=== PATIENT | male | born 2000 | race Caucasian/White ===

== ENCOUNTER 2020-07-21 13:11 | Outpatient (REF) | payer MEDICAID, SELFPAY ==
[2020-07-21 14:11] LABS: MANUAL DIFF FLAG NO
[2020-07-21 14:20] LABS: Basophils Absolute Auto 0.1 X10*3/uL (0.0-0.2); Basophils Percent Auto 0.9 % (0-2); Eosinophils Absolute Auto 0.1 X10*3/uL (0.0-0.4); Imm Gran Abs Auto 0.02 X10*3/uL (0.00-0.03); Imm Gran Pct Auto 0.3 % (0.0-0.4); Lymphocytes Absolute Auto 1.7 X10*3/uL (1.2-4.9); Lymphocytes Percent Auto 24.7 % (20-40); Mean Corpuscular HGB Conc 33.3 g/dl (31.0-36.0); Mean Corpuscular Hemoglobin 29.2 pg (27.0-33.0); Mean Corpuscular Volume 87.5 fL (80-98); Mean Platelet Volume 10.9 fL (9.4-12.4); Monocytes Absolute Auto 0.5 X10*3/uL (0.1-1.2); Neutrophils Absolute Auto 4.4 X10*3/uL (2.0-8.3); Neutrophils Percent Auto 65.1 % (45-73); Platelet Count 261 X10*3/uL (160-400); Red Blood Count 5.14 X10*6/uL (4.60-5.80); White Blood Count 6.7 X10*3/uL (4.8-10.8)
[2020-07-21 14:41] LABS: Alanine Aminotransferase 21 U/L (0-40); Albumin Level 4.7 g/dL (3.5-5.0); Alkaline Phosphatase 61 U/L (39-117); Anion Gap 10 (12-20); Aspartate Amino Transferase 17 U/L (5-37); Bilirubin Total 0.5 mg/dL (0.0-1.0); Blood Urea Nitrogen 13 mg/dL (9-16); Calcium 9.8 mg/dL (8.4-10.2); Carbon Dioxide 28 mmol/L (22-29); Chloride 104 mmol/L (96-108); Cholesterol 170 mg/dL; Estimated Glomerular Filt Rate > 60; Glucose Random 107 mg/dL (60-115); HDL Cholesterol 46 mg/dL; LDL Cholesterol Calculated 96 mg/dl; Potassium 4.1 mmol/l (3.3-5.1); Sodium 138 mmol/L (135-145); Total Protein 7.2 g/dL (6.5-8.0); Triglycerides 141 mg/dL
== END 2020-07-21 13:12 | disposition home or self-care (01) ==
LOC: HO.HMGCLDS 13:11
PROVIDERS: PCP Internal Medicine; Visit Provider Internal Medicine
DX: R53.83 Other fatigue (principal)
CPT/HCPCS: 36415; 80053; 80061; 85025

== ENCOUNTER 2020-08-08 11:33 | Emergency (ER) | payer MEDICAID, SELFPAY ==
[2020-08-08 11:45] VITALS: BP 124/64; PULSE 70; RESP 16; TEMP 36.8; O2SAT 100; BMI 30.5
--- NOTE | 2020-08-08 11:54 | XR_ITS ---
EXAMINATION: XR WRIST, LEFT CLINICAL INFORMATION: Left wrist pain status post football injury. COMPARISON: None TECHNIQUE: PA, lateral, and oblique views of the left wrist. FINDINGS: The bones and soft tissues are normal. No fracture. Alignment is anatomic with normal joint spaces. No erosions or abnormal soft tissue calcifications. XR/XR wrist LT min 3V IMPRESSION: Unremarkable left wrist.
--- NOTE | 2020-08-08 12:09 | ED.EXTPRO ---
HPI - Extremity Problem General Chief complaint: Extremity Injury, Upper Stated complaint: injured wrist Time Seen by Provider: 08/08/20 11:54 Source: patient Mode of arrival: ambulatory Limitations: no limitations History of Present Illness HPI Narrative: 20 y/o male presenting with left wrist pain after he fell while playing football yesterday. He said he fell with his hand outstretched & he had instant pain after the fall. He waited to see if it would get better today but it did not so he came in for evaluation. Denies forearm, elbow or shoulder pain. Denies numbness, tingling in his hand, wrist or fingers. Related Data Previous Rx's Medication Instructions Recorded ibuprofen 600 mg PO Q8H PRN #20 tab 08/08/20 Allergies Allergy/AdvReac Type Severity Reaction Status Date / Time No Known Allergies Allergy Verified 08/08/20 11:48 Review of Systems Review of Systems: Constitutional: No Fever, No Chills ENT/Mouth: No sore throat, No Rhinorrhe Cardiovascular: No Chest Dana Respiratory: No Cough, No Sputum nGastrointestinal: No Nausea, No Vomiting, No Diarrhea, No abdominal Dana Musculoskeletal: + joint pain, No Myalgias Skin: No Skin Lesions, No rash PMFSH Past Medical History Attestation statement: The following information was validated with the patient. Social History Social History Advance Directives: No Advance Directives Information Provided: No Physical Exam Vital Signs: Vital Signs: Last Vital Signs Temp 98.3 F 08/08/20 11:45 Pulse 70 08/08/20 11:45 Resp 16 08/08/20 11:45 BP 124/64 08/08/20 11:45 Pulse Ox 100 08/08/20 11:45 Body Mass Index 30.5 Appearance: Alert. Oriented X3. No acute distress. HEENT: normal inspection Respiratory: No respiratory distress. Skin: Skin warm and dry. Normal skin color. Normal skin turgor. No rashes. Extremities: left wrist with mild dorsal swelling, no deformity, tender throughout. able to make a fist but limited ROM due to pain. NV intact. Neuro: Oriented X 3. Non-focal. Course Course Course Narrative: 20 y/o male with left wrist pain after falling on an outstretched hand - XR pending. Reevaluation(s) Reevaluation #1: XR negative. Placed in CHRIS wrap for comfort. Stable for d/c. Patient counseled about his COVID exposure Critical Care Time Critical Care Time Critical Care Time: No Discharge Plan Discharge Clinical Impression: Sprain and strain of wrist Patient Disposition: Home, Self-Care Instructions: Wrist Sprain (ED) Additional Instructions: Your wrist x-ray was normal. Wear CHRIS wrap as needed for comfort. Take Ibuprogen and/or Tylenol as needed for pain. Use ice several times per day and elevate your wrist when possible. You may use your hand as tolerated. You were tested for COVID-19 today - we will call you with the results in the next week or so. If you develop symptoms of COVID-19 you should call your doctor. Given your exposure to a COVID-19 positive person, it is recommend that you self-isolate at home. Wear your mask. Wash your hands frequently. Prescriptions: New ibuprofen 600 mg tablet 600 mg PO Q8H PRN (Reason: pain) Qty: 20 RF: 0
== END 2020-08-08 13:20 | disposition home or self-care (01) ==
PROVIDERS: Physician Assistant; Emergency Provider Emergency Medicine Emergency Medical Services; PCP Internal Medicine
DX: S63.502A Unspecified sprain of left wrist, initial encounter (principal); M25.532 Pain in left wrist; W18.30XA Fall on same level, unspecified, initial encounter; Y93.61 Activity, american tackle football; Y92.321 Football field as the place of occurrence of the external cause; Y99.9 Unspecified external cause status; Z20.828 Contact with and (suspected) exposure to other viral communicable diseases
CPT/HCPCS: 73110; 99283; U0003

== ENCOUNTER 2021-09-06 02:12 | Emergency (ER) | payer MEDICAID, SELFPAY ==
[2021-09-06 03:06] VITALS: BP 128/58; PULSE 97; RESP 22; O2SAT 97
[2021-09-06 03:12] VITALS: BMI 25.1
== END 2021-09-06 03:54 | disposition left against medical advice (07) ==
PROVIDERS: Emergency Provider Emergency Medicine
DX: F41.9 Anxiety disorder, unspecified (principal); F12.90 Cannabis use, unspecified, uncomplicated
CPT/HCPCS: 99283

== ENCOUNTER 2022-05-11 21:19 | Emergency (ER) | payer MEDICAID, SELFPAY ==
--- NOTE | ~2022-05-11 | XR_ITS ---
EXAMINATION: XR CHEST CLINICAL INFORMATION: Shortness of breath COMPARISON: None TECHNIQUE: Frontal view of the chest was obtained. 10:20 PM FINDINGS: No significant abnormality is noted involving the heart, lungs, mediastinum, bony thorax or soft tissues. XR/XR chest 1V IMPRESSION: Unremarkable examination.
[2022-05-11 21:27] VITALS: BP 108/83; PULSE 70; O2SAT 100
--- NOTE | 2022-05-11 21:33 | ECG_ITS ---
Test Reason : SOB Blood Pressure : / mmHG Vent. Rate : 065 BPM Atrial Rate : 065 BPM P-R Int : 154 ms QRS Dur : 102 ms QT Int : 414 ms P-R-T Axes : 045 052 032 degrees QTc Int : 430 ms Normal sinus rhythm with sinus arrhythmia Normal ECG No previous ECGs available Referred By: Generic ED Physician Electronically Signed By:CAN ROSALES
[2022-05-11 21:35] VITALS: BP 132/68; PULSE 69; RESP 20; TEMP 37.2; O2SAT 100; BMI 25.7
[2022-05-11 21:53] LABS: MANUAL DIFF FLAG NO
[2022-05-11 21:55] LABS: Basophils Percent Auto 0.3 % (0-2); Eosinophils Absolute Auto 0.1 X10*3/uL (0.0-0.4); Eosinophils Percent Auto 0.8 % (0-4); Hematocrit 46.1 % (42.0-52.0); Hemoglobin 15.8 g/dl (14.0-18.0); Imm Gran Abs Auto 0.03 X10*3/uL (0.00-0.03); Imm Gran Pct Auto 0.5 % (0.0-0.4); Lymphocytes Absolute Auto 1.8 X10*3/uL (1.2-4.9); Mean Corpuscular HGB Conc 34.3 g/dl (31.0-36.0); Mean Corpuscular Hemoglobin 29.8 pg (27.0-33.0); Mean Corpuscular Volume 86.8 fL (80.0-98.0); Mean Platelet Volume 10.1 fL (9.4-12.4); Monocytes Absolute Auto 0.5 X10*3/uL (0.1-1.2); Monocytes Percent Auto 8.1 % (2-11); NRBC Pct Auto 0.3 /100WBC (0.0-0.2); Neutrophils Absolute Auto 3.6 x10*3/uL (2.0-8.3); Neutrophils Percent Auto 60.3 % (45-73); Platelet Count 252 X10*3/uL (160-400); Red Blood Count 5.31 X10*6/uL (4.60-5.80); Red Cell Distribution Width 13.4 % (11.0-16.0)
[2022-05-11 22:05] LABS: COVID-19 Test Positive (Negative)
--- NOTE | 2022-05-11 22:08 | PC.NURSE ---
Pt self inducing vomiting in WR.
[2022-05-11 22:11] LABS: Alanine Aminotransferase 33 U/L (0-40); Alkaline Phosphatase 67 U/L (39-117); Anion Gap 19 (12-20); Aspartate Amino Transferase 17 U/L (5-37); Bilirubin Direct 0.5 mg/dL (0.0-0.5); Bilirubin Total 1.2 mg/dL (0.0-1.0); Blood Urea Nitrogen 16 mg/dL (9-16); Calcium 10.2 mg/dL (8.4-10.2); Carbon Dioxide 18 mmol/L (22-29); Chloride 108 mmol/L (96-108); Creatinine Clr Calc Pharmacy 99.7; Estimated Glomerular Filt Rate > 60; Glucose Random 110 mg/dL (60-115); Potassium 3.5 mmol/L (3.3-5.1); Sodium 141 mmol/L (135-145); Total Protein 7.7 g/dL (6.5-8.0)
[2022-05-11 22:15] LABS: Troponin-I High Sensitivity < 3.5 ng/L (<3.5-35.0)
[2022-05-11 23:21] VITALS: BP 128/70; PULSE 72; RESP 20; O2SAT 100
--- NOTE | 2022-05-11 23:46 | ED_ITS ---
HPI - SOB/Dyspnea General Chief Complaint: Dyspnea Stated Complaint: SOB NV Time Seen by Provider: 05/11/22 23:29 Source: patient Mode of arrival: EMS Limitations: no limitations History of Present Illness HPI Narrative: 22-year-old male who presents emergency department for evaluation of vomiting, back pain, shortness of breath and cough times 4 days. Patient states he did test positive at home for COVID 19 3 days prior to evaluation. Patient states that he has had chills but no fever. He has had a cough which is occasionally productive. Denied chest pain. He states that he has shortness of breath at re st and mild shortness of breath dyspnea on exertion. He is complaining of diffuse myalgias and fatigue. Patient states that he has also had multiple episodes of vomiting per day. He denied diarrhea. Patient states that multiple family members are ill with COVID as well. Patient received 3 [employer] COVID-19 vaccinations. MD elicited complaint: shortness of breath and cough Onset (ago): day(s) (4) Timing: constant Severity: moderate Exacerbating factors: nothing Relieving factors: nothing Associated symptoms: chest pain and nausea/vomiting Treatment prior to arrival: none Related Data Previous Rx's Medication Instructions Recorded ibuprofen 600 mg tablet 600 mg PO Q8H PRN pain #20 tabs 08/08/20 ibuprofen 600 mg tablet 600 mg PO Q6H PRN pain #30 tabs 05/11/22 ibuprofen 800 mg tablet 800 mg PO Q6H PRN pain or fever 05/11/22 #30 tabs ondansetron 4 mg disintegrating 4 mg PO Q6-8H PRN nausea and 05/12/22 tablet vomiting #14 tabs Allergies Allergy/AdvReac Type Severity Reaction Status Date / Time No Known Allergies Allergy Verified 08/08/20 11:48 Review of Systems Review of Systems: Yes all other systems are reviewed and are negative [facility] Past Medical History [facility] Narrative: Past medical history: Asthma, chronic back pain past surgical history: None social history: Patient does smoke cigarettes. He occasionally drinks alcohol. He denies drug use. Social History Social History Advance Directives: No Advance Directives Information Provided: No Physical Exam Vital Signs: Vital Signs: Last Vital Signs Temp 98.9 F 05/11/22 21:35 Pulse 72 05/11/22 23:21 Resp 20 05/11/22 23:21 BP 128/70 05/11/22 23:21 Pulse Ox 100 05/11/22 23:21 O2 Del Method 05/11/22 23:21 BMI result Body Mass Index 25.7 Const: General: cooperative and no acute distress Or ientation/consciousness: oriented to person and oriented to place Limitat ions: no limitations HEENT: Head: Yes normal to inspection, Yes normocephalic and Yes atraumatic Ears: external ears normal General nose exam: Normal external nose present Face and sinus: Yes normal facial exam Mouth: Normal oral and palatal mucosa present Throat: Yes posterior oropharynx normal Eyes: General: appearance normal, both eyes and all related structures Pupils: Equal, round and reactive pupils present Neck: Neck: Yes normal visual inspection, Yes no lymphadenopathy, Yes trachea midline and Yes supple Chest: Chest palpation & inspection: normal inspection of the chest and normal palpation of entire chest wall Resp: Effort & Inspection: normal respiratory effort and able to speak in complete sentences Auscultation: clear to auscultation bilaterally Cardio: Rate: regular rate Rhythm: regular rhythm Heart sounds: S1 normal heart sound present, S2 normal heart sound present and no murmurs GI: Inspection: Yes normal to inspection Palpation (GI): Soft to palpation, nontender and no guarding Auscultation: normal bowel sounds : General: Yes no CVA tenderness Back/Spine/Pelvis: Back: no CVA tenderness Skin: General skin exam: no rashes or lesions noted Neuro: General: oriented to person and oriented to place Cranial nerves: Yes CN's II-XII intact bilaterally and Yes Equal, round and reactive pupils present Cognition (Neuro): normal cognition Motor exam (neuro): 5/5 motor strength present throughout Extrem: General: Yes normal to inspection Psych: Appearance: grossly normal Speech and movement: Normal speech and movement present Affect: normal affect Attitude: cooperative Thought pr ocess: Normal thought process present Thought content: Normal thought content present Course Course Course Narrative: 22-year-old male who has been sick for approximately 4 days with a viral respiratory infection, he tested positive for COVID 3 days prior. He presents with chills, occasional productive cough, mild shortness of breath and dyspnea on exertion, myalgias and vomiting. Vital signs were normal with O2 saturations of 100% on room air pain. Examination was unremarkable. Laboratory evaluation revealed a normal CBC, CMP and non elevated troponin. Patient's COVID-19 was positive. Chest x-ray was unremarkable. The patient did present to emergency department by ambulance and was treated with Zofran ODT with improvement of his nausea and vomiting. The patient has received 3 Pfizer vaccinations. At this time I do not think the patient has COVID-19 pneumonia or needs to be hospitalized and I did discuss this with him. He was prescribed Zofran and ibuprofen. He was given printed and verbal instructions and discharged home. MDM - SOB/Dyspnea Medical Records Attestation: I reviewed the patient's medical records. Lab Data Attestation: I reviewed the patient's lab results. Result diagrams: 05/11/22 21:47 05/11/22 21:47 Labs: Lab Results 05/11/22 05/11/22 05/11/22 Range/Units 21:47 21:47 21:47 WBC 6.0 (4.8-10.8) X10*3/uL RBC 5.31 (4.60-5.80) X10*6/uL Hgb 15.8 (14.0-18.0) g/dl Hct 46.1 (42.0-52.0) % MCV 86.8 (80.0-98.0) fL MCH 29.8 (27.0-33.0) pg MCHC 34.3 (31.0-36.0) g/dl RDW 13.4 (11.0-16.0) % Plt Count 252 (160-400) X10*3/uL MPV 10.1 (9.4-12.4) fL Immature Gran % (Auto) 0.5 H (0.0-0.4) % Neut % (Auto) 60.3 (45-73) % Lymph % (Auto) 30.0 (20-40) % [place] % (Auto) 8.1 (2-11) % Eos % (Auto) 0.8 (0-4) % Baso % (Auto) 0.3 (0-2) % Lymph # (Auto) 1.8 (1.2-4.9) X10*3/uL [place] # (Auto) 0.5 (0.1-1.2) X10*3/uL Eos # (Auto) 0.1 (0.0-0.4) X10*3/uL Baso # (Auto) 0.0 (0.0-0.2) X10*3/uL Abs Immat Gran (auto) 0.03 (0.00-0.03) X10*3/uL Absolute Neuts (auto) 3.6 (2.0-8.3) x10*3/uL Absolute Nucleated RBC 0.020 H (0.0-0.012) X10*3/uL Nucleated RBC % (auto) 0.3 H (0.0-0.2) /100WBC Sodium 141 (135-145) mmol/L Potassium 3.5 (3.3-5.1) mmol/L Chloride 108 (96-108) mmol/L Carbon Dioxide 18 L (22-29) mmol/L Anion Gap 19 (12-20) BUN 16 (9-16) mg/dL Creatinine 1.35 (0.5-1.4) mg/dL Estim Creat Clear Calc 99.7 Estimated GFR > 60 Random Glucose 110 (60-115) mg/dL Calcium 10.2 (8.4-10.2) mg/dL Total Bilirubin 1.2 H (0.0-1.0) mg/dL Direct Bilirubin 0.5 (0.0-0.5) mg/dL AST 17 (5-37) U/L ALT 33 (0-40) U/L Alkaline Phosphatase 67 (39-117) U/L Troponin I High Sens < 3.5 (<3.5-35.0) ng/L Total Protein 7.7 (6.5-8.0) g/dL Albumin 5.0 (3.5-5.0) g/dL COVID-19 (ELE) (Negative) COVID-19 Clin Com 05/11/22 Range/Units 21:47 WBC (4.8-10.8) X10*3/uL RBC (4.60-5.80) X10*6/uL Hgb (14.0-18.0) g/dl Hct (42.0-52.0) % MCV (80.0-98.0) fL MCH (27.0-33.0) pg MCHC (31.0-36.0) g/dl RDW (11.0-16.0) % Plt Count (160-400) X10*3/uL MPV (9.4-12.4) fL Immature Gran % (Auto) (0.0-0.4) % Neut % (Auto) (45-73) % Lymph % (Auto) (20-40) % [place] % (Auto) (2-11) % Eos % (Auto) (0-4) % Baso % (Auto) (0-2) % Lymph # (Auto) (1.2-4.9) X10*3/uL [place] # (Auto) (0.1-1.2) X10*3/uL Eos # (Auto) (0.0-0.4) X10*3/uL Baso # (Auto) (0.0-0.2) X10*3/uL Abs Immat Gran (auto) (0.00-0.03) X10*3/uL Absolute Neuts (auto) (2.0-8.3) x10*3/uL Absolute Nucleated RBC (0.0-0.012) X10*3/uL Nucleated RBC % (auto) (0.0-0.2) /100WBC Sodium (135-145) mmol/L Potassium (3.3-5.1) mmol/L Chloride (96-108) mmol/L Carbon Dioxide (22-29) mmol/L Anion Gap (12-20) BUN (9-16) mg/dL Creatinine (0.5-1.4) mg/dL Estim Creat Clear Calc Estimated GFR Random Glucose (60-115) mg/dL Calcium (8.4-10.2) mg/dL Total Bilirubin (0.0-1.0) mg/dL Direct Bilirubin (0.0-0.5) mg/dL AST (5-37) U/L ALT (0-40) U/L Alkaline Phosphatase (39-117) U/L Troponin I High Sens (<3.5-35.0) ng/L Total Protein (6.5-8.0) g/dL Albumin (3.5-5.0) g/dL COVID-19 (ELE) Positive A (Negative) COVID-19 Clin Com See Note ECG Data Attestation: I personally reviewed and interpreted this ECG as follows: Interpretation: 2138: Normal sinus rhythm with a rate of 65, normal AL interval, prolonged QRS of 102 milliseconds, normal QTC of 430 milliseconds, no ST segment elevation, no ST segment depression, no PACs, no PVCs, no T-wave abnormalities. This is a normal EKG. Discharge Plan Discharge Clinical Impression: COVID-19 virus infection Vomiting Qualifiers: Vomiting type: unspecified Nausea presence: with nausea Qualified Code(s): R11.2 - Nausea with vomiting, unspecified Patient Disposition: Home, Self-Care Instructions: COVID-19 (Coronavirus Disease 2019) (ED) Additional Instructions: Your blood work was unremarkable. Your chest x-ray revealed no evidence of COVID pneumonia. Your EKG was normal and your high sensitivity troponin (a marker of heart inflammation/damage) was below detectable limits which is reassuring Your COVID-19 test is positive. You need to isolate until your asymptomatic for at least 24 hours. Isolation sometimes needs to last for 5-14 days. Take ibuprofen 8 mg pills, 1 pills every 6 hours as needed for pain. Take Tylenol (acetaminophen) 500 mg pills, 2 pills every 4 to 6 hours as needed for pain. Take Zofran ODT 4 mg pills, 1 pill dissolved in your mouth every 8 hours as needed for nausea and vomiting. Follow-up with your doctor in 2 days. Please return to the emergency department if your symptoms get worse or if you develop any symptoms that are concerning to you. Prescriptions: New ibuprofen 600 mg tablet 600 mg PO Q6H PRN (Reason: pain) Qty: 30 0RF ibuprofen 800 mg tablet 800 mg PO Q6H PRN (Reason: pain or fever) Qty: 30 0RF ondansetron 4 mg tablet,disintegrating 4 mg PO Q6-8H PRN (Reason: nausea and vomiting) Qty: 14 0RF No Action ibuprofen 600 mg tablet 600 mg PO Q8H PRN (Reason: pain) Qty: 20 0RF Interventions: ED Discharge Assessment Last Done: 05/12/22 00:20 Discharge Date/Time: 05/12/22 00:20
== END 2022-05-12 00:20 | disposition home or self-care (01) ==
PROVIDERS: Emergency Provider Emergency Medicine Emergency Medical Services; PCP Internal Medicine
DX: U07.1 COVID-19 (principal); R11.2 Nausea with vomiting, unspecified
CPT/HCPCS: 71045; 80053; 82248; 84484; 85025; 87635; 93005; 99283; 99284

== ENCOUNTER 2022-10-19 07:18 | Emergency (ER) | payer MEDICAID, SELFPAY ==
[2022-10-19 07:25] VITALS: BP 144/86; PULSE 75; O2SAT 98
[2022-10-19 07:28] VITALS: BP 113/68; PULSE 68; RESP 18; TEMP 36.7; O2SAT 98; BMI 25.0
--- NOTE | 2022-10-19 07:42 | ED_ITS ---
HPI - Nausea/Vomiting/Diarrhea General Chief complaint: Nausea/Vomiting/Diarrhea Stated complaint: N/V/D Time Seen by Provider: 10/19/22 07:40 Source: patient Mode of arrival: EMS Limitations: no limitations History of Present Illness HPI Narrative: This is a healthy 22 years old male presented to the emergency department complaining of nausea vomiting since 03:00 a also has diarrhea. Denies any abdominal pain any fever any chills. MD elicited complaint: nausea, vomiting and diarrhea Onset (ago): hour(s) (4) Description of vomiting: watery Associated nausea: Yes Associated abdominal pain: Yes Radiation: diffuse Quality: cramping Exacerbating factors: none Relieving factors: none Related Data Previous Rx's Medication Instructions Recorded ibuprofen 600 mg tablet 600 mg PO Q8H PRN pain #20 tabs 08/08/20 ibuprofen 600 mg tablet 600 mg PO Q6H PRN pain #30 tabs 05/11/22 ibuprofen 800 mg tablet 800 mg PO Q6H PRN pain or fever 05/11/22 #30 tabs ondansetron 4 mg disintegrating 4 mg PO Q6-8H PRN nausea and 05/12/22 tablet vomiting #14 tabs Allergies Allergy/AdvReac Type Severity Reaction Status Date / Time No Known Allergies Allergy Verified 10/19/22 07:32 Review of Systems Constitutional: Constitutional: Reports no additional constitutional complaints Eyes: Eyes: Reports no additional eye complaints Gastrointestinal: Gastrointestinal: Reports abdominal pain, Reports nausea and Reports vomiting PMFSH Social History Social History Alcohol intake: never Smoked in Last 30 Days: Yes Substance Use Type: Marijuana Advance Directives: No Advance Directives Information Provided: No Physical Exam Vital Signs: Vital Signs: Last Vital Signs Temp 97 F 10/19/22 08:15 Pulse 70 10/19/22 08:15 Resp 18 10/19/22 08:15 BP 103/67 10/19/22 08:15 Pulse Ox 98 10/19/22 08:15 O2 Del Method 10/19/22 08:15 BMI result Body Mass Index 25.0 Const: General: cooperative Nutritional Appearance: average body habitus Orientation/consciousness: patient oriented x3 Limitations: no limitations HEENT: Head: Yes normal to inspection Ears: hearing grossly normal bilaterally General nose exam: Normal external nose present Face and sinus: Yes normal facial exam Mouth: Normal oral and palatal mucosa present Throat: Yes posterior oropharynx normal Neck: Neck: Yes normal visual inspection, Yes full ROM and Yes no lymphadenopathy Chest: Chest palpation & inspection: normal inspection of the chest Resp: Effort & Inspection: normal respiratory effort Cardio: Jugular venous distension: no JVD Rate: regular rate Rhythm: regular rhythm GI: Inspection: Yes normal to inspection Palpation (GI): Soft to palpation, not firm, nontender and no guarding : General: Yes no CVA tenderness Back/Spine/Pelvis: Back: no CVA tenderness Skin: General skin exam: no rashes or lesions noted Lesions: no lesions Rashes: no rashes Neuro: General: patient oriented x3 Cranial nerves: Yes CN's II-XII intact bilaterally Coordination: [id number] test normal Course Reevaluation(s) Reevaluation #1: Feel better,WBC downtrending,tolerated po well. I want to go home Can we pull IV out please Pt eager to go home ,states feels 100% better. Time: 10:21 Medications Administered Discontinued Medications Generic Name Dose Route Start Last Admin Trade Name Freq PRN Reason Stop Dose Admin Sodium Chloride 1,000 mls @ 999 mls/hr 10/19/22 07:45 10/19/22 08:54 Ns IVCONT 10/19/22 08:45 Infused .Q1H1M HEBER Infusion Sodium Chloride 1,000 mls @ 999 mls/hr 10/19/22 07:45 10/19/22 09:25 Ns IVCONT 10/19/22 08:45 Infused .Q1H1M HEBER Infusion Metoclopramide HCl 10 mg 10/19/22 07:40 10/19/22 07:50 Metoclopramide Hcl 10 Mg/2 Ml Vial IVPUSH 10/19/22 07:41 10 mg ONCE ONE Administration Medical Decision Making Medical Decision Making MDM Narrative: This is a healthy 22 years old patient with nausea vomiting and diarrhea will get labs hydrate him antiemetic reassess Differential Diagnosis Differential Diagnoses: The differential diagnosis associated with the presentation includes Gastroenteritis, colitis diverticulitis cannabis hyperemesis Admission/Observation Consideration of admission/observation: Escalation of care including admission/observation considered Lab Data MDM Lab Attestation statement: I reviewed the patient's lab results. 10/19/22 07:40 10/19/22 07:40 Labs: Lab Results 10/19/22 10/19/22 10/19/22 Range/Units 07:40 07:40 07:53 WBC 18.2 H (4.8-10.8) X10*3/uL RBC 5.59 (4.60-5.80) X10*6/uL Hgb 16.6 (14.0-18.0) g/dl Hct 48.3 (42.0-52.0) % MCV 86.4 (80.0-98.0) fL MCH 29.7 (27.0-33.0) pg MCHC 34.4 (31.0-36.0) g/dl RDW 13.2 (11.0-16.0) % Plt Count 297 (160-400) X10*3/uL MPV 9.9 (9.4-12.4) fL Immature Gran % (Auto) Cancelled Neut % (Auto) Cancelled Lymph % (Auto) Cancelled [place] % (Auto) Cancelled Eos % (Auto) Cancelled Baso % (Auto) Cancelled Lymph # (Auto) Cancelled [place] # (Auto) Cancelled Eos # (Auto) Cancelled Baso # (Auto) Cancelled Abs Immat Gran (auto) Cancelled Absolute Neuts (auto) Cancelled Absolute Nucleated RBC 0.000 (0.0-0.012) X10*3/uL Nucleated RBC % (auto) 0.0 (0.0-0.2) /100WBC Neutrophils % (Manual) 89 H (45-73) % Band Neutrophils % 8 H (3-5) % Lymphocytes % (Manual) 1 L (20-40) % Monocytes % (Manual) 1 L (2-11) % Basophils % (Manual) 1 (0-2) % Abs Neuts (Manual) 17.7 H (2.0-8.3) X10*3/uL Lymphocytes # (Manual) 0.2 L (1.2-4.9) X10*3/uL Monocytes # (Manual) 0.2 (0.1-1.2) X10*3/uL Basophils # (Manual) 0.2 (0.0-0.2) X10*3/uL Toxic Vacuolation PRESENT Platelet Estimate NORMAL (NORMAL) Plt Morphology Comment NORMAL RBC Morphology NORMAL Smear Tech's Comments Sodium 143 (135-145) mmol/L Potassium 4.2 (3.3-5.1) mmol/L Chloride 106 (96-108) mmol/L Carbon Dioxide 20 L (22-29) mmol/L Anion Gap 21 H (12-20) BUN 21 H (9-16) mg/dL Creatinine 1.00 (0.5-1.4) mg/dL Estim Creat Clear Calc 127.1 Estimated GFR > 60 Random Glucose 111 (60-115) mg/dL Calcium 10.5 H (8.4-10.2) mg/dL Total Bilirubin 0.9 (0.0-1.0) mg/dL Direct Bilirubin 0.2 (0.0-0.5) mg/dL AST 20 (5-37) U/L ALT 21 (0-40) U/L Alkaline Phosphatase 65 (39-117) U/L Total Protein 7.9 (6.5-8.0) g/dL Albumin 5.0 (3.5-5.0) g/dL Lipase 16 (8-78) U/L Influenza Type A (PCR) NEGATIVE (Negative) Influenza Type B (PCR) NEGATIVE (Negative) RSV RNA Qual (PCR) NEGATIVE (Negative) SARS-CoV-2 RNA (RT-PCR) NEGATIVE (Negative) 10/19/22 Range/Units 09:41 WBC 17.8 H (4.8-10.8) X10*3/uL RBC 4.95 (4.60-5.80) X10*6/uL Hgb 14.6 (14.0-18.0) g/dl Hct 43.1 (42.0-52.0) % MCV 87.1 (80.0-98.0) fL MCH 29.5 (27.0-33.0) pg MCHC 33.9 (31.0-36.0) g/dl RDW 13.2 (11.0-16.0) % Plt Count 261 (160-400) X10*3/uL MPV 10.1 (9.4-12.4) fL Immature Gran % (Auto) 0.5 H Neut % (Auto) 92.3 H Lymph % (Auto) 3.[address] [place] % (Auto) 3.6 Eos % (Auto) 0.2 Baso % (Auto) 0.2 Lymph # (Auto) 0.[address] [place] # (Auto) 0.6 Eos # (Auto) 0.0 Baso # (Auto) 0.0 Abs Immat Gran (auto) 0.09 H Absolute Neuts (auto) 16.4 H Absolute Nucleated RBC 0.000 (0.0-0.012) X10*3/uL Nucleated RBC % (auto) 0.0 (0.0-0.2) /100WBC Neutrophils % (Manual) (45-73) % Band Neutrophils % (3-5) % Lymphocytes % (Manual) (20-40) % Monocytes % (Manual) (2-11) % Basophils % (Manual) (0-2) % Abs Neuts (Manual) (2.0-8.3) X10*3/uL Lymphocytes # (Manual) (1.2-4.9) X10*3/uL Monocytes # (Manual) (0.1-1.2) X10*3/uL Basophils # (Manual) (0.0-0.2) X10*3/uL Toxic Vacuolation Platelet Estimate (NORMAL) Plt Morphology Comment RBC Morphology Smear Tech's Comments VERIFIED Sodium (135-145) mmol/L Potassium (3.3-5.1) mmol/L Chloride (96-108) mmol/L Carbon Dioxide (22-29) mmol/L Anion Gap (12-20) BUN (9-16) mg/dL Creatinine (0.5-1.4) mg/dL Estim Creat Clear Calc Estimated GFR Random Glucose (60-115) mg/dL Calcium (8.4-10.2) mg/dL Total Bilirubin (0.0-1.0) mg/dL Direct Bilirubin (0.0-0.5) mg/dL AST (5-37) U/L ALT (0-40) U/L Alkaline Phosphatase (39-117) U/L Total Protein (6.5-8.0) g/dL Albumin (3.5-5.0) g/dL Lipase (8-78) U/L Influenza Type A (PCR) (Negative) Influenza Type B (PCR) (Negative) RSV RNA Qual (PCR) (Negative) SARS-CoV-2 RNA (RT-PCR) (Negative) Discharge Plan Discharge Clinical Impression: Vomiting Patient Disposition: Home, Self-Care Instructions: Acute Nausea and Vomiting (ED) Additional Instructions: You should be on clear liquid diet today, return if you worse otherwise follow- up with your primary care physician Prescriptions: No Action ibuprofen 600 mg tablet 600 mg PO Q8H PRN (Reason: pain) Qty: 20 0RF ibuprofen 600 mg tablet 600 mg PO Q6H PRN (Reason: pain) Qty: 30 0RF ibuprofen 800 mg tablet 800 mg PO Q6H PRN (Reason: pain or fever) Qty: 30 0RF ondansetron 4 mg tablet,disintegrating 4 mg PO Q6-8H PRN (Reason: nausea and vomiting) Qty: 14 0RF Referrals: Constantine Shannon MD [Primary Care Provider] - 2 days Interventions: ED Discharge Assessment Last Done: 10/19/22 10:44 Discharge Date/Time: 10/19/22 10:44
[2022-10-19] MEDS: 0.9 % Sodium Chloride 1,000 ML 999 ML IVCONT ×2 (07:50→08:22)
[2022-10-19] MEDS: Metoclopramide HCl 10 MG/2 ML VIAL IVPUSH (07:50)
--- OUTSIDE RECORDS SUMMARY | 2022-10-19 07:50 | XMS_ITS | Continuity of Care Document ---
:2000 Author Organization [facility] Address [address] [place] [id number] Care Team Providers Name Role Phone Shiva BERGERON, Constantine Chavez Primary Care Physician Encounter [facility] [place] Date(s): 07/16/20 - 07/16/[address] [address]- [facility] Encounter Diagnosis Encounter for staple removal (Final) - 07/16/20 Discharge Disposition: A-D/C Home Attending Physician: Kat Lynn MD Admitting Physician: Kat Lynn MD Referring Physician: Not on Staff, Referring MD Allergies, Adverse Reactions, Alerts Substance Reaction Severity Status NKA Active Medications Keflex 250 mg/5 ml oral powder for reconstitution 250 mg, By Mouth, 4 times a day, # 100 mL, 12/19/08 22:37:12 Start Date: 12/19/08 Stop Date: 12/26/08 Status: OrderedKeflex monohydrate 500 mg oral capsule 1 capsule = 500 mg, By Mouth, 4 times a day, for 7 days, # 28 capsule, 0 Refills, Acute 07/23/20 10:38:00 EST, 07/16/20 10:38:00 EST, Capsule, [facility] 3, 183, cm, 07/16/20 9:39:00 EST, Height, 86.5, kg, 07/16/20 9:39:00 EST, Dry Weight Start Date: 07/16/20 Stop Date: 07/23/20 Status: Ordered Vital Signs Most recent to oldest [Reference Range]: 1 Height 183 cm (07/16/20 9:39 AM) Weight 86.5 kg (07/16/20 9:39 AM) Oxygen Saturation [94-100 %] 100 % (07/16/20 9:39 AM) Pulse Rate [55-90 bpm] 65 bpm (07/16/20 9:39 AM) Body Mass Index [18.5-24.99] 25.83 *H* (07/16/20 9:39 AM) Blood Pressure [90-138/55-84 mm Hg] 103/55 mm Hg (07/16/20 9:39 AM) Respiratory Rate [16-30 br/min] 16 br/min (07/16/20 9:39 AM) Temperature [96.8-100.4 DegF] 98.2 DegF (07/16/20 9:39 AM) Mode of Delivery (Oxygen) Room air (07/16/20 9:39 AM) Blood pressure sites Arm, left (07/16/20 9:39 AM) Temperature Route Oral (07/16/20 9:39 AM) Dry Weight 86.5 kg (07/16/20 9:39 AM) Weight Obtained Via Patient/family stated (07/16/20 9:39 AM) Dry Weight Obtained Via Patient/family stated (07/16/20 9:39 AM)
--- OUTSIDE RECORDS SUMMARY | 2022-10-19 07:50 | XMS_ITS | Continuity of Care Document ---
:2000 Author Organization [facility] Address [address] [place] [address]- Care Team Providers Name Role Phone Josh BERGERON, Quoc Farr Primary Care Physician En[place] [facility] [place]/11/[place] - 07/11/[address] [address]- [facility] Discharge Disposition: A-D/C Walkout Attending Physician: Not on Staff, Attending MD Admitting Physician: Not on Staff, Admitting MD Referring Physician: Not on Staff, Referring MD Allergies, Adverse Reactions, Alerts Substance Reaction Severity Status NKA Active Medications Keflex 250 mg/5 ml oral powder for reconstitution 250 mg, By Mouth, 4 times a day, # 100 mL, 12/19/08 22:37:12 Start Date: 12/19/08 Stop Date: 12/26/08 Status: Ordered
--- OUTSIDE RECORDS SUMMARY | 2022-10-19 07:50 | XMS_ITS | Continuity of Care Document ---
:2000 Author Organization [facility] Address [address] [place] [address]- Care Team Providers Name Role Phone Josh BERGERON, Quoc Farr Primary Care Physician [place] [facility] [place](s): 07/04/20 - 07/04/[address] [address]- [facility] Discharge Disposition: A-D/C Home Attending Physician: Ann Padgett MD Admitting Physician: Ann Padgett MD Referring Physician: Not on Staff, Referring MD Allergies, Adverse Reactions, Alerts Substance Reaction Severity Status NKA Active Medications Keflex 250 mg/5 ml oral powder for reconstitution 250 mg, By Mouth, 4 times a day, # 100 mL, 12/19/08 22:37:12 Start Date: 12/19/08 Stop Date: 12/26/08 Status: Ordered Vital Signs Most recent to oldest [Reference Range]: 1 2 Oxygen Saturation [94-100 %] 100 % 100 % (07/04/20 4:30 PM) (07/04/20 2:59 PM) Pulse Rate [55-90 bpm] 60 bpm 61 bpm (07/04/20 4:30 PM) (07/04/20 2:59 PM) Blood Pressure [90-138/55-84 mm Hg] 137/75 mm Hg 145/ 83 mm Hg (07/04/20 4:30 PM) *H* (07/04/20 2:59 PM) Respiratory Rate [16-30 br/min] 18 br/min 16 br/mi n (07/04/20 4:30 PM) (07/04/20 2:59 PM) Temperature [96.8-100.4 DegF] 98.4 DegF 98.4 DegF (07/04/20 4:30 PM) (07/04/20 2:59 PM) Liters per Minute 0 L/min (07/04/20 4:30 PM) Mode of Delivery (Oxygen) Room air Room air (07/04/20 4:30 PM) (07/04/20 2:59 PM) Blood pressure sites Arm, right Arm, right (07/04/20 4:30 PM) (07/04/20 2:59 PM) Temperature Route Oral Oral (07/04/20 4:30 PM) (07/04/20 2:59 PM)
[2022-10-19 08:05] LABS: Alanine Aminotransferase 21 U/L (0-40); Alkaline Phosphatase 65 U/L (39-117); Anion Gap 21 (12-20); Aspartate Amino Transferase 20 U/L (5-37); Bilirubin Direct 0.2 mg/dL (0.0-0.5); Bilirubin Total 0.9 mg/dL (0.0-1.0); Blood Urea Nitrogen 21 mg/dL (9-16); Calcium 10.5 mg/dL (8.4-10.2); Carbon Dioxide 20 mmol/L (22-29); Chloride 106 mmol/L (96-108); Creatinine Clr Calc Pharmacy 127.1; Estimated Glomerular Filt Rate > 60; Glucose Random 111 mg/dL (60-115); Lipase 16 U/L (8-78); Potassium 4.2 mmol/L (3.3-5.1); Sodium 143 mmol/L (135-145); Total Protein 7.9 g/dL (6.5-8.0)
[2022-10-19 08:12] LABS: Hematocrit 48.3 % (42.0-52.0); Hemoglobin 16.6 g/dl (14.0-18.0); Mean Corpuscular HGB Conc 34.4 g/dl (31.0-36.0); Mean Corpuscular Hemoglobin 29.7 pg (27.0-33.0); Mean Corpuscular Volume 86.4 fL (80.0-98.0); Mean Platelet Volume 9.9 fL (9.4-12.4); Platelet Count 297 X10*3/uL (160-400); Red Blood Count 5.59 X10*6/uL (4.60-5.80); Red Cell Distribution Width 13.2 % (11.0-16.0); White Blood Count 18.2 X10*3/uL (4.8-10.8)
[2022-10-19 08:15] VITALS: BP 103/67; PULSE 70; RESP 18; TEMP 36.1; O2SAT 98
[2022-10-19 08:18] LABS: Band Neutrophils Percent 8 % (3-5); Basophils Abs Manual 0.2 X10*3/uL (0.0-0.2); Basophils Percent Manual 1 % (0-2); Lymphocytes Absolute Manual 0.2 X10*3/uL (1.2-4.9); Lymphocytes Percent Manual 1 % (20-40); Monocytes Absolute Manual 0.2 X10*3/uL (0.1-1.2); Monocytes Percent Manual 1 % (2-11); Neutrophils Absolute Manual 17.7 X10*3/uL (2.0-8.3); Neutrophils Percent Manual 89 % (45-73)
[2022-10-19 08:20] LABS: Platelet Estimate NORMAL (NORMAL); Platelet Morphology Comment NORMAL; RBC Morphology NORMAL; Toxic Vacuolation PRESENT
[2022-10-19 08:37] LABS: Influenza A PCR NEGATIVE (Negative); Influenza B PCR NEGATIVE (Negative); Resp Syncy Virus RNA Qual PCR NEGATIVE (Negative); SARS COV2 PCR INHOUSE NEGATIVE (Negative)
[2022-10-19 09:51] LABS: Basophils Percent Auto 0.2 % (0-2); Eosinophils Percent Auto 0.2 % (0-4); Hematocrit 43.1 % (42.0-52.0); Hemoglobin 14.6 g/dl (14.0-18.0); Imm Gran Abs Auto 0.09 X10*3/uL (0.00-0.03); Imm Gran Pct Auto 0.5 % (0.0-0.4); Lymphocytes Absolute Auto 0.6 X10*3/uL (1.2-4.9); Lymphocytes Percent Auto 3.2 % (20-40); Mean Corpuscular HGB Conc 33.9 g/dl (31.0-36.0); Mean Corpuscular Hemoglobin 29.5 pg (27.0-33.0); Mean Corpuscular Volume 87.1 fL (80.0-98.0); Mean Platelet Volume 10.1 fL (9.4-12.4); Monocytes Absolute Auto 0.6 X10*3/uL (0.1-1.2); Monocytes Percent Auto 3.6 % (2-11); Neutrophils Absolute Auto 16.4 x10*3/uL (2.0-8.3); Neutrophils Percent Auto 92.3 % (45-73); Platelet Count 261 X10*3/uL (160-400); Red Blood Count 4.95 X10*6/uL (4.60-5.80); Red Cell Distribution Width 13.2 % (11.0-16.0); SCAN SMEAR FLAG 1; White Blood Count 17.8 X10*3/uL (4.8-10.8)
[2022-10-19 09:53] LABS: MANUAL DIFF FLAG SCAN
[2022-10-19 10:08] LABS: SLIDE REVIEW VERIFIED
== END 2022-10-19 10:44 | disposition home or self-care (01) ==
PROVIDERS: Emergency Provider Emergency Medicine; PCP Internal Medicine
DX: R11.2 Nausea with vomiting, unspecified (principal); Z20.822 Contact with and (suspected) exposure to COVID-19; Z20.828 Contact with and (suspected) exposure to other viral communicable diseases; Z79.899 Other long term (current) drug therapy
CPT/HCPCS: 0241U; 36415; 80053; 82248; 83690; 85007; 85025; 85027; 96361; 96374; 99284; J2765

== ENCOUNTER 2022-12-11 20:49 | Emergency (ER) | payer MEDICAID, SELFPAY ==
--- NOTE | ~2022-12-11 | CT_ITS ---
EXAMINATION: NONCONTRAST HEAD CT NONCONTRAST CERVICAL SPINE CT INDICATION INFORMATION: Pain. COMPARISON: CT head dated 06/01/2016 TECHNIQUE: Separate noncontrast CT examinations of the head and cervical spine were performed. Coronal and sagittal images were created for each examination at the technologist workstation. This CT examination was performed using dose optimization techniques as appropriate, variously including the following: *Automated exposure control *Adjustment of mA and/or kV according to patient size (this includes techniques or standardized protocols for targeted exams where dose is matched to indication/reason for exam; i.e. extremities or head) *Use of iterative reconstruction technique DLP: 1011 mGy-cm FINDINGS: Head: There is no evidence of acute intracranial hemorrhage or territorial infarction. No abnormal mass effect or midline shift is seen. Donaldson to white matter differentiation is well preserved. No extra-axial fluid collections are identified. No hydrocephalus. No significant volume loss. There is no abnormal attenuation within the brain parenchyma. No acute osseous or soft tissue abnormality. The mastoid air cells and visualized portions of the paranasal sinuses are well aerated. Cervical spine: There is anatomic alignment of the vertebral bodies and posterior elements. The atlantoaxial and atlantooccipital articulations are intact. Vertebral body heights and intervertebral disc spaces are maintained. No evidence of acute fracture. No prevertebral soft tissue swelling. Visualized portions of the lung apices are unremarkable. The thyroid gland is unremarkable. CT/CT head/brain wo IV con IMPRESSION: * No acute intracranial bleed or territorial infarction. * No acute fracture or malalignment of the cervical spine.
--- NOTE | ~2022-12-11 | CT_ITS ---
EXAMINATION: NONCONTRAST HEAD CT NONCONTRAST CERVICAL SPINE CT INDICATION INFORMATION: Pain. COMPARISON: CT head dated 06/01/2016 TECHNIQUE: Separate noncontrast CT examinations of the head and cervical spine were performed. Coronal and sagittal images were created for each examination at the technologist workstation. This CT examination was performed using dose optimization techniques as appropriate, variously including the following: *Automated exposure control *Adjustment of mA and/or kV according to patient size (this includes techniques or standardized protocols for targeted exams where dose is matched to indication/reason for exam; i.e. extremities or head) *Use of iterative reconstruction technique DLP: 1011 mGy-cm FINDINGS: Head: There is no evidence of acute intracranial hemorrhage or territorial infarction. No abnormal mass effect or midline shift is seen. Donaldson to white matter differentiation is well preserved. No extra-axial fluid collections are identified. No hydrocephalus. No significant volume loss. There is no abnormal attenuation within the brain parenchyma. No acute osseous or soft tissue abnormality. The mastoid air cells and visualized portions of the paranasal sinuses are well aerated. Cervical spine: There is anatomic alignment of the vertebral bodies and posterior elements. The atlantoaxial and atlantooccipital articulations are intact. Vertebral body heights and intervertebral disc spaces are maintained. No evidence of acute fracture. No prevertebral soft tissue swelling. Visualized portions of the lung apices are unremarkable. The thyroid gland is unremarkable. CT/CT cervical spine wo IV con IMPRESSION: * No acute intracranial bleed or territorial infarction. * No acute fracture or malalignment of the cervical spine.
[2022-12-11 20:52] VITALS: BP 138/84; PULSE 104; O2SAT 98
[2022-12-11 20:53] VITALS: BP 107/57; PULSE 88; RESP 16; TEMP 36.7; O2SAT 95; BMI 24.4
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
--- NOTE | 2022-12-12 00:44 | PC.NURSE ---
verbal order per dr Yang 400 mg ibuprofen for pt's headache prior to discharge
[2022-12-12] MEDS: Ibuprofen 400 MG TABLET PO (00:46)
== END 2022-12-12 00:53 | disposition home or self-care (01) ==
PROVIDERS: Emergency Provider Emergency Medicine Emergency Medical Services; PCP Internal Medicine
DX: S09.90XA Unspecified injury of head, initial encounter (principal); Y04.8XXA Assault by other bodily force, initial encounter; Y93.9 Activity, unspecified; Y92.019 Unspecified place in single-family (private) house as the place of occurrence of the external cause; Y99.9 Unspecified external cause status; Z72.89 Other problems related to lifestyle; Z63.0 Problems in relationship with spouse or partner
CPT/HCPCS: 70450; 72125; 99283; 99284

== ENCOUNTER 2022-12-17 00:51 | Emergency (ER) | payer MEDICAID, SELFPAY ==
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
[2022-12-17 01:00] VITALS: PULSE 105; O2SAT 98; BMI 26.0
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
[2022-12-17] MEDS: 0.9 % Sodium Chloride 1,000 ML 999 ML IV (01:26)
[2022-12-17] MEDS: ondansetron HCL 4 MG/2 ML VIAL IVPUSH (01:26)
[2022-12-17] MEDS: Morphine Sulfate 4 MG/ML CARTRIDGE IVPUSH ×2 (01:26→02:18)
[2022-12-17 01:29] LABS: MANUAL DIFF FLAG NO
[2022-12-17 01:31] LABS: Basophils Absolute Auto 0.1 X10*3/uL (0.0-0.2); Basophils Percent Auto 0.7 % (0-2); Eosinophils Absolute Auto 0.1 X10*3/uL (0.0-0.4); Eosinophils Percent Auto 1.4 % (0-4); Hematocrit 38.3 % (42.0-52.0); Imm Gran Abs Auto 0.04 X10*3/uL (0.00-0.03); Imm Gran Pct Auto 0.4 % (0.0-0.4); Lymphocytes Absolute Auto 2.4 X10*3/uL (1.2-4.9); Lymphocytes Percent Auto 23.9 % (20-40); Mean Corpuscular HGB Conc 33.9 g/dl (31.0-36.0); Mean Corpuscular Hemoglobin 30.4 pg (27.0-33.0); Mean Corpuscular Volume 89.5 fL (80.0-98.0); Mean Platelet Volume 9.8 fL (9.4-12.4); Monocytes Absolute Auto 0.8 X10*3/uL (0.1-1.2); Monocytes Percent Auto 8.4 % (2-11); Neutrophils Absolute Auto 6.5 x10*3/uL (2.0-8.3); Neutrophils Percent Auto 65.2 % (45-73); Platelet Count 276 X10*3/uL (160-400); Red Blood Count 4.28 X10*6/uL (4.60-5.80); Red Cell Distribution Width 13.6 % (11.0-16.0)
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
[2022-12-17 01:40] LABS: INTERNATIONAL NORM RATIO 1.1 (0.9-1.1); Prothrombin Time 12.3 SEC (10.0-13.1)
[2022-12-17 01:43] LABS: Partial Thromboplastin Time 29.6 SEC (26.0-36.4)
[2022-12-17 01:46] LABS: IDNOW Serial# BCCEAD1C; Influenza A Negative (Negative); Influenza B2 Negative (Negative)
[2022-12-17 01:48] LABS: Alanine Aminotransferase 10 U/L (0-40); Albumin Level 4.4 g/dL (3.5-5.0); Alkaline Phosphatase 53 U/L (39-117); Anion Gap 11 (12-20); Aspartate Amino Transferase 11 U/L (5-37); Bilirubin Total 0.6 mg/dL (0.0-1.0); Blood Urea Nitrogen 17 mg/dL (9-16); Calcium 9.1 mg/dL (8.4-10.2); Carbon Dioxide 27 mmol/L (22-29); Chloride 108 mmol/L (96-108); Creatinine Clr Calc Pharmacy 112.5; Estimated Glomerular Filt Rate > 60; Glucose Random 84 mg/dL (60-115); Potassium 3.2 mmol/L (3.3-5.1); Sodium 143 mmol/L (135-145); Total Protein 6.6 g/dL (6.5-8.0)
[2022-12-17 02:01] LABS: COVID-19 Test Negative (Negative); IDNOW Serial# BCCEAD1C
[2022-12-17 02:16] VITALS: BP 123/71; PULSE 76; RESP 24; O2SAT 99
[2022-12-17] MEDS: Amoxicillin 500 MG CAPSULE 1000 MG PO (03:36)
== END 2022-12-17 04:07 | disposition home or self-care (01) ==
PROVIDERS: Emergency Provider Emergency Medicine Emergency Medical Services; PCP Internal Medicine
DX: S00.83XA Contusion of other part of head, initial encounter (principal); R51.9 Headache, unspecified; M54.2 Cervicalgia; Y04.2XXA Assault by strike against or bumped into by another person, initial encounter; Y93.9 Activity, unspecified; Y92.9 Unspecified place or not applicable; Y99.9 Unspecified external cause status; Z20.822 Contact with and (suspected) exposure to COVID-19; Z20.828 Contact with and (suspected) exposure to other viral communicable diseases; Z79.899 Other long term (current) drug therapy
CPT/HCPCS: 70450; 70486; 72125; 80053; 85025; 85610; 85730; 87502; 87635; 96361; 96374; 96375; 96376; 99284; J2270; J2405

== ENCOUNTER 2023-10-03 10:52 | Emergency (ER) | payer OTHER, MEDICAID, SELFPAY ==
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
[2023-10-03 10:57] VITALS: BP 136/88; PULSE 104; O2SAT 98
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
[2023-10-03 11:09] VITALS: BP 134/88; PULSE 84; RESP 16; TEMP 36.4; O2SAT 98; BMI 31.6
[2023-10-03] MEDS: Cyclobenzaprine HCl 5 MG TABLET PO (12:06)
[2023-10-03] MEDS: Acetaminophen 325 MG TABLET 975 MG PO (12:06)
[2023-10-03 13:09] VITALS: BP 124/84; PULSE 74; RESP 16; TEMP 37.1; O2SAT 97
== END 2023-10-03 14:36 | disposition home or self-care (01) ==
PROVIDERS: Emergency Provider Emergency Medicine; PCP Internal Medicine
DX: S09.90XA Unspecified injury of head, initial encounter (principal); V47.0XXA Car driver injured in collision with fixed or stationary object in nontraffic accident, initial encounter; M25.511 Pain in right shoulder; Y93.89 Activity, other specified; Y92.413 State road as the place of occurrence of the external cause; Y99.9 Unspecified external cause status
CPT/HCPCS: 70450; 72125; 73030; 73080; 73590; 99283; 99284

== ENCOUNTER 2023-11-06 08:29 | Emergency (ER) | payer MEDICAID, SELFPAY ==
[2023-11-06 08:40] VITALS: BP 128/73; BP 137/86; PULSE 74; PULSE 96; RESP 18; TEMP 36.5; O2SAT 100; BMI 23.7
[2023-11-06 08:42] VITALS: BP 128/73; PULSE 74; RESP 18; TEMP 36.5; O2SAT 100
--- NOTE | 2023-11-06 08:44 | ED_ITS ---
HPI - Nausea/Vomiting/Diarrhea General Chief complaint: Nausea/Vomiting/Diarrhea Stated complaint: NOT FEELING WELL NAUSEA VOMITING Time Seen by Provider: 11/06/23 08:38 Source: patient and EMS Mode of arrival: EMS Limitations: no limitations History of Present Illness HPI Narrative: 23-year-old male with no known medical history presents the ER with complaints nausea, vomiting, diarrhea and generalized abdominal pain for the last 2 days with inability to maintain p.o.. No recent travel, sick contact. Patient smokes marijuana, drinks alcohol Associated nausea: Yes Related Data Previous Rx's Medication Instructions Recorded ibuprofen 600 mg tablet 600 mg PO Q8H PRN pain #20 tabs 08/08/20 ibuprofen 600 mg tablet 600 mg PO Q6H PRN pain #30 tabs 05/11/22 ibuprofen 800 mg tablet 800 mg PO Q6H PRN pain or fever 05/11/22 #30 tabs ondansetron 4 mg disintegrating 4 mg PO Q6-8H PRN nausea and 05/12/22 tablet vomiting #14 tabs amoxicillin 500 mg capsule 1,000 mg (2 x 500 mg) PO TID 5 12/17/22 days #30 caps morphine 15 mg immediate release 15 mg PO Q4-6H PRN pain #14 tabs 12/17/22 tablet acetaminophen 500 mg tablet 500 mg PO Q6H PRN fever or pain 10/03/23 (Tylenol Extra Strength) #14 tabs cyclobenzaprine 5 mg tablet 5 mg PO Q8H PRN pain (scale score 10/03/23 7-10) 5 days #14 tabs lidocaine 5 % topical patch 1 patch topical DAILY PRN pain #30 10/03/23 (Lidoderm) ea naproxen 500 mg tablet 500 mg PO BID PRN pain 10 days #20 10/03/23 tabs ondansetron 4 mg disintegrating 4 mg PO Q6H PRN nausea and 11/06/23 tablet vomiting #15 tabs Allergies Allergy/AdvReac Type Severity Reaction Status Date / Time No Known Allergies Allergy Verified 10/19/22 07:32 Review of Systems 2 Review of Systems: Yes all other systems are reviewed and are negative Constitutional: Constitutional: Reports no additional constitutional complaints, Denies body ache(s), Denies chills, Denies fever(s), Denies headache(s) and Denies weakness Eyes: Eyes: Reports no additional eye complaints and Denies change in vision ENT: Reports system reviewed and no additional complaints, except as documented, Denies dizziness, Denies headache(s), Denies nasal congestion, Denies nasal discharge and Denies neck pain Cardiovascular: Cardiovascular: Reports no additional cardiovascular complaints, Denies chest pain, Denies leg edema and Denies dyspnea Respiratory: Respiratory: Reports no additional respiratory complaints, Denies cough and Denies dyspnea Gastrointestinal: Gastrointestinal: Reports no additional gastrointestinal complaints, Reports abdominal pain, Reports diarrhea, Reports nausea and Reports vomiting Genitourinary: Genitourinary: Denies urinary incontinence Musculoskeletal: Musculoskeletal: Reports no additional musculoskeletal complaints, Denies back pain, Denies arthralgias, Denies joint swelling, Denies neck pain, Denies numbness and Denies tingling Integumentary/Breasts: Skin/Breast: Reports system reviewed and no additional complaints, except as docu and Denies rash Neurologic: Reports system reviewed and no additional complaints, except as documented, Denies Abnormal speech present, Denies dizziness, Denies headache(s), Denies numbness, Denies tingling and Denies weakness [facility] Past Medical History Attestation statement: The following information was validated with the patient. Source: old records reviewed and nursing notes reviewed Social History Social History Alcohol intake: never Smoked in Last 30 Days: Yes Use of substances other than those prescribed or required for medical reasons: Yes Substance Use Type: Marijuana Advance Directives: No Advance Directives Information Provided: No Physical Exam 2 Vital Signs: Vital Signs: Last Vital Signs Temp 98.4 F 11/06/23 10:56 Pulse 83 11/06/23 10:56 Resp 18 11/06/23 10:56 BP 121/69 11/06/23 10:56 Pulse Ox 97 11/06/23 10:56 O2 Del Method Room Air 11/06/23 10:56 BMI result Body Mass Index 23.7 Const: General: cooperative, healthy appearing, comfortable and no acute distress Orientation/consciousness: patient oriented x3 Limitations: no limitations HEENT: Head: Yes normal to inspection Ears: hearing grossly normal bilaterally General nose exam: Normal external nose present Face and sinus: Yes normal facial exam Mouth: Normal oral and palatal mucosa present Throat: Yes posterior oropharynx normal Eyes: General: appearance normal, both eyes and all related structures P upils: Equal, round and reactive pupils present Neck: Neck: Yes normal visual inspection Chest: Chest palpation & inspection: normal inspection of the chest Resp: Effort & Inspection: normal respiratory effort Auscultation: clear to auscultation bilaterally Cardio: Rate: regular rate Rhythm: regular rhythm Peripheral pulses: P eripheral pulses 2+ throughout GI: Inspection: Yes normal to inspection Palpation (GI): Soft to palpation and Tenderness to palpation present (GI) (diffusely tender-no rebound or guarding ) Auscultation: normal bowel sounds Back/Spine/Pelvis: Thoracic/Lumbar Spine: thoracic and lumbar spine normal to inspection Skin: General skin exam: no rashes or lesions noted Neuro: General: patient oriented x3, no focal motor deficits and normal sensation to monofilament Cranial nerves: Yes Equal, round and reactive pupils present Cognition (Neuro): normal cognition Speech: No Abnormal speech present Gait exam (Neuro): Normal gait present Motor exam (neuro): 5/5 motor strength present throughout Extrem: General: Yes normal to inspection Course Course Course Narrative: 1130-patient feeling improved. Reviewed labs which are unremarkable. Repeat abdominal exam is benign. Patient will attempt PO trial Reevaluation(s) Reevaluation #1: 1210-patient tolerating p.o. with no additional vomiting episodes. Likely viral syndrome. Patient will be discharged home with antiemetic and recommendations to continue supportive care. Medications Administered Discontinued Medications Generic Name Dose Route Start Last Admin Trade Name Freq PRN Reason Stop Dose Admin Sodium Chloride 1,000 mls @ 999 mls/hr 11/06/23 08:44 11/06/23 11:01 Ns IV 11/06/23 09:44 Infused .Q1H1M STA Infusion Lorazepam 1 mg 11/06/23 08:50 11/06/23 09:00 Lorazepam 2 Mg/Ml Vial IVPUSH 11/06/23 08:51 1 mg STAT STA Administration Ondansetron HCl 4 mg 11/06/23 08:44 11/06/23 09:00 Ondansetron Hcl 4 Mg/2 Ml Vial IVPUSH 11/06/23 08:45 4 mg ONCE ONE Administration Medical Decision Making Medical Decision Making [facility] Narrative: 23-year-old male with no known medical history presents the ER with complaints nausea, vomiting, diarrhea and generalized abdominal pain for the last 2 days with inability to maintain p.o.. No recent travel, sick contact. Patient smokes marijuana, drinks alcohol Abdomen diffusely tender with no rebound or guarding Very anxious Actively vomiting VSS Will obtain labs, UA, viral testing Will give IVF, antiemetic, ativan Differential Diagnosis Differential Diagnoses: The differential diagnosis associated with the presentation includes gastroenteritis low suspicion for acute abdomen Admission/Observation Consideration of admission/observation: Escalation of care including admission/observation considered Lab Data MDM Lab Attestation statement: I reviewed the patient's lab results. 11/06/23 08:51 11/06/23 08:51 Labs: Lab Results 11/06/23 11/06/23 Range/Units 08:51 09:46 WBC 8.2 (4.8-10.8) X10*3/uL RBC 5.44 D (4.60-5.80) X10*6/uL Hgb 16.7 D (14.0-18.0) g/dl Hct 47.6 D (42.0-52.0) % MCV 87.5 (80.0-98.0) fL MCH 30.7 (27.0-33.0) pg MCHC 35.1 (31.0-36.0) g/dl RDW 13.3 (11.0-16.0) % Plt Count 270 (160-400) X10*3/uL MPV 9.9 (9.4-12.4) fL Immature Gran % (Auto) 0.5 H (0.0-0.4) % Neut % (Auto) 77.8 H (45-73) % Lymph % (Auto) 14.4 L (20-40) % [place] % (Auto) 5.9 (2-11) % Eos % (Auto) 0.8 (0-4) % Baso % (Auto) 0.6 (0-2) % Lymph # (Auto) 1.2 (1.2-4.9) X10*3/uL [place] # (Auto) 0.5 (0.1-1.2) X10*3/uL Eos # (Auto) 0.1 (0.0-0.4) X10*3/uL Baso # (Auto) 0.1 (0.0-0.2) X10*3/uL Abs Immat Gran (auto) 0.04 H (0.00-0.03) X10*3/uL Absolute Neuts (auto) 6.4 (2.0-8.3) x10*3/uL Absolute Nucleated RBC 0.000 (0.0-0.012) X10*3/uL Nucleated RBC % (auto) 0.0 (0.0-0.2) /100WBC Sodium 140 (135-145) mmol/L Potassium 3.7 (3.3-5.1) mmol/L Chloride 102 (96-108) mmol/L Carbon Dioxide 22 (22-29) mmol/L Anion Gap 20 (12-20) BUN 9 (9-16) mg/dL Creatinine 1.02 (0.5-1.4) mg/dL Estim Creat Clear Calc 123.6 Estimated GFR > 60 Random Glucose 108 (60-115) mg/dL Calcium 10.0 D (8.4-10.2) mg/dL Total Bilirubin 0.4 (0.0-1.0) mg/dL Direct Bilirubin 0.2 (0.0-0.5) mg/dL AST 33 (5-37) U/L ALT 65 H (0-40) U/L Alkaline Phosphatase 76 (39-117) U/L Total Protein 7.7 (6.5-8.0) g/dL Albumin 4.7 (3.5-5.0) g/dL Lipase 11 (8-78) U/L Urine Color Yellow Urine Appearance Clear Urine pH >= 9.0 (5.0-9.0) Ur Specific [place] 1.015 (1.005-1.025) Urine Protein Trace (Neg-Trace) mg/dL Urine Glucose (UA) Negative (Negative) mg/dL Urine Ketones Negative (Negative) mg/dL Urine Blood Negative (Negative) Urine Nitrite Negative (Negative) Ur Leukocyte Esterase Negative (Negative) Influenza Type A (PCR) NEGATIVE (Negative) Influenza Type B (PCR) NEGATIVE (Negative) RSV RNA Qual (PCR) NEGATIVE (Negative) SARS-CoV-2 RNA (RT-PCR) NEGATIVE (Negative) Independent Historian Clinical information obtained from an independent historian. History obtained from or confirmed by: EMS Prescription Management I considered prescription management with: Antibiotic Discharge Plan Discharge Clinical Impression: Gastroenteritis Patient Disposition: Home, Self-Care Instructions: Gastroenteritis (ED) Additional Instructions: Start with clear liquids and advance diet as tolerated Return for any worsening symptoms Your lab work and viral testing are all negative Prescriptions: New ondansetron 4 mg tablet,disintegrating 4 mg PO Q6H PRN (Reason: nausea and vomiting) Qty: 15 0RF No Action ibuprofen 600 mg tablet 600 mg PO Q8H PRN (Reason: pain) Qty: 20 0RF ibuprofen 600 mg tablet 600 mg PO Q6H PRN (Reason: pain) Qty: 30 0RF ibuprofen 800 mg tablet 800 mg PO Q6H PRN (Reason: pain or fever) Qty: 30 0RF ondansetron 4 mg tablet,disintegrating 4 mg PO Q6-8H PRN (Reason: nausea and vomiting) Qty: 14 0RF acetaminophen [Tylenol Extra Strength] 500 mg tablet 500 mg PO Q6H PRN (Reason: fever or pain) Qty: 14 0RF lidocaine [Lidoderm] 5 % adhesive patch,medicated 1 patch topical DAILY MDD remove after 12 hours PRN (Reason: pain) Qty: 30 0RF Rx Instructions: leave on most painful area for up to 12 hrs naproxen 500 mg tablet 500 mg PO BID PRN (Reason: pain) 10 Days Qty: 20 0RF cyclobenzaprine 5 mg tablet 5 mg PO Q8H PRN (Reason: pain (scale score 7-10)) 5 Days Qty: 14 0RF morphine 15 mg tablet 15 mg PO Q4-6H PRN (Reason: pain) Qty: 14 0RF Rx Instructions: Patient may request partial fill; Partial Fill upon patient request. amoxicillin 500 mg capsule 1,000 mg PO TID 5 Days Qty: 30 0RF Referrals: Constantine Shannon MD [Primary Care Provider] - 1 week
[2023-11-06 08:57] LABS: MANUAL DIFF FLAG NO
[2023-11-06 08:58] LABS: Basophils Absolute Auto 0.1 X10*3/uL (0.0-0.2); Basophils Percent Auto 0.6 % (0-2); Eosinophils Absolute Auto 0.1 X10*3/uL (0.0-0.4); Eosinophils Percent Auto 0.8 % (0-4); Hematocrit 47.6 % (42.0-52.0); Hemoglobin 16.7 g/dl (14.0-18.0); Imm Gran Abs Auto 0.04 X10*3/uL (0.00-0.03); Imm Gran Pct Auto 0.5 % (0.0-0.4); Lymphocytes Absolute Auto 1.2 X10*3/uL (1.2-4.9); Lymphocytes Percent Auto 14.4 % (20-40); Mean Corpuscular HGB Conc 35.1 g/dl (31.0-36.0); Mean Corpuscular Hemoglobin 30.7 pg (27.0-33.0); Mean Corpuscular Volume 87.5 fL (80.0-98.0); Mean Platelet Volume 9.9 fL (9.4-12.4); Monocytes Absolute Auto 0.5 X10*3/uL (0.1-1.2); Monocytes Percent Auto 5.9 % (2-11); Neutrophils Absolute Auto 6.4 x10*3/uL (2.0-8.3); Neutrophils Percent Auto 77.8 % (45-73); Platelet Count 270 X10*3/uL (160-400); Red Blood Count 5.44 X10*6/uL (4.60-5.80); Red Cell Distribution Width 13.3 % (11.0-16.0); White Blood Count 8.2 X10*3/uL (4.8-10.8)
[2023-11-06] MEDS: 0.9 % Sodium Chloride 1,000 ML 999 ML IV (09:00)
[2023-11-06] MEDS: LORazepam 2 MG/ML VIAL 1 MG IVPUSH (09:00)
[2023-11-06] MEDS: ondansetron HCL 4 MG/2 ML VIAL IVPUSH (09:00)
--- NOTE | 2023-11-06 09:06 | PC.NURSE ---
Pt presented to to ED via EMS from home. Pt reports N/V/D X2 days with no PO intake. Pt also reports generalized ABD pain, 7/10, cramping and squeezing. Pt denies any fevers, cough, CP, SOB. Pt alert and oriented, breathing even and unlabored, skin clammy and warm. Pt has intermittent episodes of vomiting. ABD soft, non-distended. VSS. Pt placed on 2L O2 via NC for comfort per providers orders, pt medicated per NOV.
[2023-11-06 09:15] LABS: Alanine Aminotransferase 65 U/L (0-40); Albumin Level 4.7 g/dL (3.5-5.0); Alkaline Phosphatase 76 U/L (39-117); Anion Gap 20 (12-20); Aspartate Amino Transferase 33 U/L (5-37); Bilirubin Direct 0.2 mg/dL (0.0-0.5); Bilirubin Total 0.4 mg/dL (0.0-1.0); Blood Urea Nitrogen 9 mg/dL (9-16); Carbon Dioxide 22 mmol/L (22-29); Chloride 102 mmol/L (96-108); Creatinine Clr Calc Pharmacy 123.6; Estimated Glomerular Filt Rate > 60; Glucose Random 108 mg/dL (60-115); Lipase 11 U/L (8-78); Potassium 3.7 mmol/L (3.3-5.1); Sodium 140 mmol/L (135-145); Total Protein 7.7 g/dL (6.5-8.0)
[2023-11-06 09:59] LABS: Appearance Urine Clear; Color Urine Yellow; Glucose Urine UA Negative (Negative); Leukocyte Esterase Urine Negative (Negative); Nitrite Urine Negative (Negative); PH >= 9.0 (5.0-9.0); Specific Gravity - Urine 1.015 (1.005-1.025); Urine Blood Negative (Negative); Urine Ketones Negative (Negative); Urine Protein Trace mg/dL (Neg-Trace)
[2023-11-06 10:11] LABS: Influenza A PCR NEGATIVE (Negative); Influenza B PCR NEGATIVE (Negative); Resp Syncy Virus RNA Qual PCR NEGATIVE (Negative); SARS COV2 PCR INHOUSE NEGATIVE (Negative)
[2023-11-06 10:56] VITALS: BP 121/69; PULSE 83; RESP 18; TEMP 36.9; O2SAT 97
== END 2023-11-06 12:20 | disposition home or self-care (01) ==
PROVIDERS: Nurse Practitioner Family; Emergency Provider Emergency Medicine; PCP Internal Medicine
DX: K52.9 Noninfective gastroenteritis and colitis, unspecified (principal); R11.2 Nausea with vomiting, unspecified; R10.9 Unspecified abdominal pain; F12.90 Cannabis use, unspecified, uncomplicated; Z79.899 Other long term (current) drug therapy; Z11.52 Encounter for screening for COVID-19; Z20.822 Contact with and (suspected) exposure to COVID-19
CPT/HCPCS: 0241U; 80048; 80076; 81003; 83690; 85025; 96361; 96374; 96375; 99284; J2060; J2405

== ENCOUNTER 2023-12-30 13:00 | Outpatient (RCR) | payer OTHER, MEDICAID, SELFPAY | END 2024-06-14 07:13 | disposition home or self-care (01) | LOC: HO.PTCHIC 13:00 | PROVIDERS: PCP Internal Medicine; Visit Provider Internal Medicine | DX: S49.91XD Unspecified injury of right shoulder and upper arm, subsequent encounter (principal); V89.2XXD Person injured in unspecified motor-vehicle accident, traffic, subsequent encounter | CPT/HCPCS: 97014; 97110; 97140; 97161 ==

== ENCOUNTER 2024-10-20 11:16 | Emergency (ER) | payer OTHER, SELFPAY ==
[2024-10-20 11:26] VITALS: BP 128/83; BP 138/88; PULSE 74; PULSE 77; RESP 18; TEMP 36.7; O2SAT 100; O2SAT 98; BMI 28.5
--- NOTE | 2024-10-20 11:34 | ED_ITS ---
HPI - Nausea/Vomiting/Diarrhea General Chief complaint: Nausea/Vomiting/Diarrhea Stated complaint: N/V/D X 2 DAYS Time Seen by Provider: 10/20/24 11:18 Source: patient and EMS Mode of arrival: EMS Limitations: no limitations History of Present Illness ED Provider: Danelle Blank APRN HPI Narrative: 24 yo male with a history of asthma presents to the ER with complaints of multiple episodes of NBNB emesis and non-bloody diarrhea w/ generalized abdominal discomfort described as cramping x 2 days. His grandparents whom he lives with have similar symptoms. He has also had cough, rhinorrhea and chills. No chest pain, shortness of breath, fevers, sore throat, headache, neck pain/stiffness. No recent travel. Denies alcohol use. Uses marijuana, smokes cigarettes. Associated nausea: Yes Related Data Previous Rx's ?Medication ?Instructions ?Recorded ibuprofen 600 mg tablet 600 mg PO Q8H PRN pain #20 tabs 08/08/20 ibuprofen 600 mg tablet 600 mg PO Q6H PRN pain #30 tabs 05/11/22 ibuprofen 800 mg tablet 800 mg PO Q6H PRN pain or fever 05/11/22 #30 tabs ondansetron 4 mg disintegrating 4 mg PO Q6-8H PRN nausea and 05/12/22 tablet vomiting #14 tabs amoxicillin 500 mg capsule 1,000 mg (2 x 500 mg) PO TID 5 12/17/22 days #30 caps morphine 15 mg immediate release 15 mg PO Q4-6H PRN pain #14 tabs 12/17/22 tablet acetaminophen 500 mg tablet 500 mg PO Q6H PRN fever or pain 10/03/23 (Tylenol Extra Strength) #14 tabs cyclobenzaprine 5 mg tablet 5 mg PO Q8H PRN pain (scale score 10/03/23 7-10) 5 days #14 tabs lidocaine 5 % topical patch 1 patch topical DAILY PRN pain #30 10/03/23 (Lidoderm) ea naproxen 500 mg tablet 500 mg PO BID PRN pain 10 days #20 10/03/23 tabs ondansetron 4 mg disintegrating 4 mg PO Q6H PRN nausea and 11/06/23 tablet vomiting #15 tabs ondansetron 4 mg disintegrating 4 mg PO Q8H PRN nausea and 10/20/24 tablet vomiting #12 tabs Allergies Allergy/AdvReac Type Severity Reaction Status Date / Time No Known Allergies Allergy Verified 10/20/24 11:27 Review of Systems 2 Review of Systems: Yes all other systems are reviewed and are negative Constitutional: Constitutional: Reports no additional constitutional complaints, Denies body ache(s), Reports chills, Denies fever(s), Denies headache(s) and Denies weakness Eyes: Eyes: Reports no additional eye complaints and Denies change in vision ENT: Reports system reviewed and no additional complaints, except as documented, Denies dizziness, Denies headache(s), Denies nasal congestion, Reports nasal discharge and Denies neck pain Cardiovascular: Cardiovascular: Reports no additional cardiovascular complaints, Denies chest pain, Denies leg edema and Denies dyspnea Respiratory: Respiratory: Reports no additional respiratory complaints, Reports cough and Denies dyspnea Gastrointestinal: Gastrointestinal: Reports no additional gastrointestinal complaints, Reports abdominal pain, Reports diarrhea, Reports nausea and Reports vomiting Genitourinary: Genitourinary: Denies urinary incontinence Musculoskeletal: Musculoskeletal: Reports no additional musculoskeletal complaints, Denies back pain, Denies arthralgias, Denies joint swelling, Denies neck pain, Denies numbness and Denies tingling Integumentary/Breasts: Skin/Breast: Reports system reviewed and no additional complaints, except as docu and Denies rash Neurologic: Reports system reviewed and no additional complaints, except as documented, Denies Abnormal speech present, Denies dizziness, Denies headache(s), Denies numbness, Denies tingling and Denies weakness [facility] Past Medical History Attestation statement: The following information was validated with the patient. Source: old records reviewed and nursing notes reviewed Social History Social History Alcohol intake: never Smoked in Last 30 Days: Yes Use of substances other than those prescribed or required for medical reasons: Yes Substance Use Type: Marijuana Advance Directives: No Advance Directives Information Provided: No Do you have a plan to hurt others: No Plan Physical Exam 2 Vital Signs: Vital Signs: Last Vital Signs Temp 98.0 F 10/20/24 11:26 Pulse 74 10/20/24 11:26 Resp 18 10/20/24 11:26 BP 128/83 10/20/24 11:26 Pulse Ox 100 10/20/24 11:26 O2 Del Method Room Air 10/20/24 11:26 BMI result Body Mass Index 28.5 Const: General: cooperative, healthy appearing, comfortable and no acute distress Orientation/consciousness: patient oriented x3 Limitations: no limitations HEENT: Head: Yes normal to inspection Ears: hearing grossly normal bilaterally and TM's normal bilaterally General nose exam: Normal external nose present Face and sinus: Yes normal facial exam Mouth: Normal oral and palatal mucosa present Throat: Yes posterior oropharynx normal, Yes tonsils normal and Yes uvula midline Eyes: General: appearance normal, both eyes and all related structures P upils: Equal, round and reactive pupils present Neck: Neck: Yes normal visual inspection, Yes full ROM, Yes no lymphadenopathy and Yes no meningeal signs Chest: Chest palpation & inspection: normal inspection of the chest Resp: Effort & Inspection: normal respiratory effort Auscultation: clear to auscultation bilaterally Cardio: Rate: regular rate Rhythm: regular rhythm Peripheral pulses: P eripheral pulses 2+ throughout GI: Inspection: Yes normal to inspection Palpation (GI): Soft to palpation and nontender Auscultation: normal bowel sounds Back/Spine/Pelvis: Thoracic/Lumbar Spine: thoracic and lumbar spine normal to inspection Skin: General skin exam: no rashes or lesions noted Neuro: General: patient oriented x3, no meningeal signs, no focal motor deficits and normal sensation to monofilament Cranial nerves: Yes Equal, round and reactive pupils present Cognition (Neuro): normal cognition S peech: No Abnormal speech present Gait exam (Neuro): Normal gait present M otor exam (neuro): 5/5 motor strength present throughout Extrem: General: Yes normal to inspection, Yes no pedal edema and Yes no calf tenderness Course Course Course Narrative: Labs are unremarkable. Viral testing is negative. Patient tolerated to 8 oz margy Ales with no additional vomiting episodes. He is feeling improved. Abdomen nontender. Likely viral gastroenteritis. Will discharge home with Janiya ni. Reviewed worrisome signs and symptoms of when to return to the emergency room. Comfortable plan for discharge home Medications Administered Discontinued Medications Generic Name Dose Route Start Last Admin Trade Name Freq PRN Reason Stop Dose Admin Diphenhydramine HCl 25 mg 10/20/24 13:53 10/20/24 14:05 Diphenhydramine Hcl 50 Mg/Ml Vial IVPUSH 10/20/24 13:54 25 mg ONCE ONE Administration Famotidine 20 mg 10/20/24 11:34 10/20/24 11:56 Famotidine/Pf 20 Mg/2 Ml Vial IVPUSH 10/20/24 11:35 20 mg ONCE ONE Administration Sodium Chloride 1,000 mls @ 999 mls/hr 10/20/24 11:34 10/20/24 15:10 Ns IV 10/20/24 12:34 Infused .Q1H1M STA Infusion Sodium Chloride 1,000 mls @ 999 mls/hr 10/20/24 12:17 10/20/24 15:10 Ns IV 10/20/24 13:17 Infused .Q1H1M STA Infusion Lorazepam 0.5 mg 10/20/24 11:34 10/20/24 11:56 Lorazepam 2 Mg/Ml Vial IVPUSH 10/20/24 11:35 0.5 mg STAT STA Administration Metoclopramide HCl 10 mg 10/20/24 13:53 10/20/24 14:05 Metoclopramide Hcl 10 Mg/2 Ml Vial IVPUSH 10/20/24 13:54 10 mg ONCE ONE Administration Ondansetron HCl 4 mg 10/20/24 11:34 10/20/24 11:56 Ondansetron Hcl 4 Mg/2 Ml Vial IVPUSH 10/20/24 11:35 4 mg ONCE ONE Administration Medical Decision Making Medical Decision Making [facility] Narrative: 24 yo male with a history of asthma presents to the ER with complaints of multiple episodes of NBNB emesis and non-bloody diarrhea w/ generalized abdominal discomfort described as cramping x 2 days as well as some mild URI symptoms with + sick contact. No focal abdominal pain on exam. +BS. VSS. +anxious Will obtain labs, UA, viral testing Will give IVF, antiemetic, PPI, low dose ativan Differential Diagnosis Differential Diagnoses: The differential diagnosis associated with the presentation includes influenza, gastroenteritis, cannabis induced vomiting Low suspicion for infectious diarrhea, appendicitis, SBO, diverticulitis Admission/Observation Consideration of admission/observation: Escalation of care including admission/observation considered Viral syndrome. Now tolerating p.o.. No need for admission with IV hydration Lab Data [facility] Lab Attestation statement: I reviewed the patient's lab results. mild leukocytosis, mild acidosis and elevation of BUN/creatinine-secondary to vomiting with mild dehydration. Will give 2L NS 10/20/24 11:45 10/20/24 11:45 Labs: Lab Results 10/20/24 Range/Units 11:45 WBC 11.8 H (4.8-10.8) X10*3/uL RBC 5.52 (4.60-5.80) X10*6/uL Hgb 16.6 (14.0-18.0) g/dl Hct 47.2 (42.0-52.0) % MCV 85.5 (80.0-98.0) fL MCH 30.1 (27.0-33.0) pg MCHC 35.2 (31.0-36.0) g/dl RDW 13.1 (11.0-16.0) % Plt Count 305 (160-400) X10*3/uL MPV 10.6 (9.4-12.4) fL Immature Gran % (Auto) 0.3 (0.0-0.4) % Neut % (Auto) 86.2 H (45-73) % Lymph % (Auto) 8.7 L (20-40) % [place] % (Auto) 4.2 (2-11) % Eos % (Auto) 0.3 (0-4) % Baso % (Auto) 0.3 (0-2) % Lymph # (Auto) 1.0 L (1.2-4.9) X10*3/uL [place] # (Auto) 0.5 (0.1-1.2) X10*3/uL Eos # (Auto) 0.0 (0.0-0.4) X10*3/uL Baso # (Auto) 0.0 (0.0-0.2) X10*3/uL Abs Immat Gran (auto) 0.04 H (0.00-0.03) X10*3/uL Absolute Neuts (auto) 10.2 H (2.0-8.3) x10*3/uL Absolute Nucleated RBC 0.000 (0.0-0.012) X10*3/uL Nucleated RBC % (auto) 0.0 (0.0-0.2) /100WBC Sodium 142 (135-145) mmol/L Potassium 4.0 (3.3-5.1) mmol/L Chloride 110 H (96-108) mmol/L Carbon Dioxide 19 L (22-29) mmol/L Anion Gap 17 (12-20) BUN 19 H (9-16) mg/dL Creatinine 1.44 H (0.5-1.4) mg/dL Estim Creat Clear Calc 94.7 Estimated GFR > 60 Random Glucose 114 (60-115) mg/dL Calcium 11.0 H D (8.4-10.2) mg/dL Total Bilirubin 0.6 (0.0-1.0) mg/dL Direct Bilirubin 0.2 (0.0-0.5) mg/dL AST 23 (5-37) U/L ALT 23 (0-40) U/L Alkaline Phosphatase 54 (39-117) U/L Total Protein 8.9 H (6.5-8.0) g/dL Albumin 5.3 H (3.5-5.0) g/dL Lipase 15 (8-78) U/L Influenza Type A (PCR) NEGATIVE (Negative) Influenza Type B (PCR) NEGATIVE (Negative) RSV RNA Qual (PCR) NEGATIVE (Negative) SARS-CoV-2 RNA (RT-PCR) NEGATIVE (Negative) Independent Historian Clinical information obtained from an independent historian. History obtained from or confirmed by: EMS Tests considered The following testing was considered but not selected: No focal abdominal pain to suggest need for CT abdomen and pelvis Prescription Management I considered prescription management with: Antibiotic Discharge Plan Discharge Clinical Impression: Gastroenteritis Patient Disposition: Home, Self-Care Instructions: Gastroenteritis (ED) Additional Instructions: Start with clear liquids then advance diet as tolerated Testing for flu, covid and rsv are negative Your blood work shows that you are mildly dehydrated. Increase fluids at home. Return for any worsening symptoms Prescriptions: New ondansetron 4 mg tablet,disintegrating 4 mg PO Q8H PRN (Reason: nausea and vomiting) Qty: 12 0RF No Action ibuprofen 600 mg tablet 600 mg PO Q8H PRN (Reason: pain) Qty: 20 0RF ibuprofen 600 mg tablet 600 mg PO Q6H PRN (Reason: pain) Qty: 30 0RF ibuprofen 800 mg tablet 800 mg PO Q6H PRN (Reason: pain or fever) Qty: 30 0RF ondansetron 4 mg tablet,disintegrating 4 mg PO Q6-8H PRN (Reason: nausea and vomiting) Qty: 14 0RF acetaminophen [Tylenol Extra Strength] 500 mg tablet 500 mg PO Q6H PRN (Reason: fever or pain) Qty: 14 0RF lidocaine [Lidoderm] 5 % adhesive patch,medicated 1 patch topical DAILY MDD remove after 12 hours PRN (Reason: pain) Qty: 30 0RF Rx Instructions: leave on most painful area for up to 12 hrs naproxen 500 mg tablet 500 mg PO BID PRN (Reason: pain) 10 Days Qty: 20 0RF cyclobenzaprine 5 mg tablet 5 mg PO Q8H PRN (Reason: pain (scale score 7-10)) 5 Days Qty: 14 0RF ondansetron 4 mg tablet,disintegrating 4 mg PO Q6H PRN (Reason: nausea and vomiting) Qty: 15 0RF morphine 15 mg tablet 15 mg PO Q4-6H PRN (Reason: pain) Qty: 14 0RF Rx Instructions: Patient may request partial fill; Partial Fill upon patient request. amoxicillin 500 mg capsule 1,000 mg PO TID 5 Days Qty: 30 0RF Referrals: Constantine Shannon MD [Primary Care Provider] - 1 week Print Language: Vincentian
[2024-10-20 11:50] LABS: MANUAL DIFF FLAG NO
[2024-10-20 11:52] LABS: Basophils Percent Auto 0.3 % (0-2); Eosinophils Percent Auto 0.3 % (0-4); Hematocrit 47.2 % (42.0-52.0); Hemoglobin 16.6 g/dl (14.0-18.0); Imm Gran Abs Auto 0.04 X10*3/uL (0.00-0.03); Imm Gran Pct Auto 0.3 % (0.0-0.4); Lymphocytes Percent Auto 8.7 % (20-40); Mean Corpuscular HGB Conc 35.2 g/dl (31.0-36.0); Mean Corpuscular Hemoglobin 30.1 pg (27.0-33.0); Mean Corpuscular Volume 85.5 fL (80.0-98.0); Mean Platelet Volume 10.6 fL (9.4-12.4); Monocytes Absolute Auto 0.5 X10*3/uL (0.1-1.2); Monocytes Percent Auto 4.2 % (2-11); Neutrophils Absolute Auto 10.2 x10*3/uL (2.0-8.3); Neutrophils Percent Auto 86.2 % (45-73); Platelet Count 305 X10*3/uL (160-400); Red Blood Count 5.52 X10*6/uL (4.60-5.80); Red Cell Distribution Width 13.1 % (11.0-16.0); White Blood Count 11.8 X10*3/uL (4.8-10.8)
[2024-10-20] MEDS: 0.9 % Sodium Chloride 1,000 ML 999 ML IV ×2 (11:54→12:27)
[2024-10-20] MEDS: ondansetron HCL 4 MG/2 ML VIAL IVPUSH (11:56)
[2024-10-20] MEDS: Famotidine/PF 20 MG/2 ML VIAL IVPUSH (11:56)
[2024-10-20] MEDS: LORazepam 2 MG/ML VIAL 0.5 MG IVPUSH (11:56)
[2024-10-20 12:09] LABS: Alanine Aminotransferase 23 U/L (0-40); Albumin Level 5.3 g/dL (3.5-5.0); Alkaline Phosphatase 54 U/L (39-117); Anion Gap 17 (12-20); Aspartate Amino Transferase 23 U/L (5-37); Bilirubin Direct 0.2 mg/dL (0.0-0.5); Bilirubin Total 0.6 mg/dL (0.0-1.0); Blood Urea Nitrogen 19 mg/dL (9-16); Carbon Dioxide 19 mmol/L (22-29); Chloride 110 mmol/L (96-108); Creatinine Clr Calc Pharmacy 94.7; Estimated Glomerular Filt Rate > 60; Glucose Random 114 mg/dL (60-115); Lipase 15 U/L (8-78); Sodium 142 mmol/L (135-145); Total Protein 8.9 g/dL (6.5-8.0)
[2024-10-20 12:29] LABS: Influenza A PCR NEGATIVE (Negative); Influenza B PCR NEGATIVE (Negative); Resp Syncy Virus RNA Qual PCR NEGATIVE (Negative); SARS COV2 PCR INHOUSE NEGATIVE (Negative)
[2024-10-20] MEDS: Metoclopramide HCl 10 MG/2 ML VIAL IVPUSH (14:05)
[2024-10-20] MEDS: diphenhydrAMINE HCL 50 MG/ML VIAL 25 MG IVPUSH (14:05)
[2024-10-20 15:27] VITALS: BP 120/82; PULSE 62; RESP 18; TEMP 36.7; O2SAT 98
[2024-10-20 15:29] VITALS: BP 120/82; PULSE 62; RESP 18; TEMP 36.7; O2SAT 98
== END 2024-10-20 15:29 | disposition home or self-care (01) ==
PROVIDERS: Nurse Practitioner Family; Emergency Provider Emergency Medicine; PCP Internal Medicine
DX: K52.9 Noninfective gastroenteritis and colitis, unspecified (principal); Z03.818 Encounter for observation for suspected exposure to other biological agents ruled out; R11.2 Nausea with vomiting, unspecified; Z79.899 Other long term (current) drug therapy
CPT/HCPCS: 0241U; 80048; 80076; 83690; 85025; 96361; 96374; 96375; 99284; 99285; J1200; J2060; J2405; J2765

== ENCOUNTER 2025-08-17 11:24 | Emergency (ER) | payer OTHER, SELFPAY ==
--- NOTE | ~2025-08-17 | XR_ITS ---
CLINICAL HISTORY: hit wall, pain to ulnar aspect hand fingers 3 view left hand Comparison: None provided Findings: Comminuted fracture centered in the 5th metacarpal neck is associated with angulation, apex dorsal. No intra-articular extension. No dislocation. No significant arthritic change. No radiopaque foreign body. IMPRESSION: 1. Soft tissue swelling in the 5th digit. 2. Comminuted fracture centered in the 5th metacarpal neck is associated with angulation, apex dorsal. This document has been electronically signed by: Rosmery Sage DO on 08/17/2025 13:15:19
--- NOTE | ~2025-08-17 | XR_ITS ---
CLINICAL HISTORY: hit wall, pain to ulnar aspect hand fingers 3 view left wrist Comparison: None provided Findings: No fractures or dislocations. No significant arthritic change or erosions. No radiopaque foreign body. IMPRESSION: 1. No acute fracture or dislocation. 2. Distal 5th metacarpal fracture is described in better detail on concomitant left hand radiographs. This document has been electronically signed by: Rosmery Sage DO on 08/17/2025 13:13:26
[2025-08-17 11:38] VITALS: BP 125/79; PULSE 100; RESP 18; TEMP 36.6; O2SAT 99; BMI 33.2
--- NOTE | 2025-08-17 11:38 | ED_ITS ---
HPI - General Adult General Chief complaint: Extremity Injury, Upper Stated complaint: Injury Time Seen by Provider: 08/17/25 11:58 Source: patient, RN notes reviewed and old records reviewed Mode of arrival: ambulatory Limitations: no limitations History of Present Illness ED Provider: Michelle MORALES narrative: Patient is a 25-year-old left-hand dominant male presenting to the emergency de partment with complaint of left hand and wrist pain since yesterday. States that he was worsening around with his nephew when he slipped and put his hand out to break his fall but ended up punching the wall. Reports ecchymosis to palmar aspect of left hand. Denies any weakness, numbness, tingling. MD complaint: left hand injury Related Data Previous Rx's ?Medication ?Instructions ?Recorded ibuprofen 600 mg tablet 600 mg PO Q8H PRN pain #20 t abs 08/08/20 ibuprofen 600 mg tablet 600 mg PO Q6H PRN pain #30 t abs 05/11/22 ibuprofen 800 mg tablet 800 mg PO Q6H PRN pain or fe jose elias 05/11/22 #30 tabs ondansetron 4 mg disintegrating 4 mg PO Q6-8H PRN naus ea and 05/12/22 tablet vomiting #14 tabs amoxicillin 500 mg capsule 1,000 mg (2 x 500 mg) PO TI D 5 12/17/22 days #30 caps morphine 15 mg immediate release 15 mg PO Q4-6H PRN pa in #14 tabs 12/17/22 tablet acetaminophen 500 mg tablet 500 mg PO Q6H PRN fever or pain 10/03/23 (Tylenol Extra Strength) #14 tabs cyclobenzaprine 5 mg tablet 5 mg PO Q8H PRN pain (scal e score 10/03/23 7-10) 5 days #14 tabs lidocaine 5 % topical patch 1 patch topical DAILY PRN pain #30 10/03/23 (Lidoderm) ea naproxen 500 mg tablet 500 mg PO BID PRN pain 10 da ys #20 10/03/23 tabs ondansetron 4 mg disintegrating 4 mg PO Q6H PRN nausea and 11/06/23 tablet vomiting #15 tabs ondansetron 4 mg disintegrating 4 mg PO Q8H PRN nausea and 10/20/24 tablet vomiting #12 tabs Allergies Allergy/AdvReac Type Severity Reaction Status Date / Time No Known Allergies Allergy Verified 08/17/25 11:39 Review of Systems Review of Systems: as per hpi Yes all other systems are reviewed and are negative Constitutional: Constitutional: Reports as per HPI [facility] Social History Social History Alcohol intake: never Substance Use Type: Marijuana Advance Directives: No Advance Directives Information Provided: No Do you have a plan to hurt others: No Plan Physical Exam ED Vital Signs: Vital Signs - 24 hr 08/17/25 11:38 Temperature 98 F Pulse Rate 100 Respiratory Rate 18 Blood Pressure 125/79 Pulse Oximetry 99 Oxygen Delivery Method Room Air BMI result Body Mass Index 33.2 Vital signs have been reviewed and appear to be correct. Blood pressure normal. Heart rate normal. Respiratory rate normal. Temperature normal. Oxygen saturation normal. Const General: cooperative, healthy appearing and no acute distress Orientation/consciousness: oriented to person, oriented to place, oriented to time and patient oriented x3 Limitations: no limitations HENOR Head: Yes normocephalic and Yes atraumatic Ears: external ears normal General nose exam: Normal external nose present Face and sinus: Yes face symmetric Mouth: oropharynx normal and moist mucous membranes Throat: Yes uvula midline Eyes Pupils: Equal, round and reactive pupils present Neck Neck: Yes normal visual inspection and Yes supple Resp Effort & Inspection: normal respiratory effort and able to speak in complete sentences Auscultation: clear to auscultation bilaterally Cardio Rate: regular rate Rhythm: regular rhythm Heart sounds: S1 normal heart sound present and S2 normal heart sound present GI Palpation (GI): Soft to palpation and nontender Auscultation: normoactive bowel sounds General: Yes no CVA tenderness Back/Spine/Pelvis Back: no CVA tenderness Skin General skin exam: elasticity normal and turgor normal Neuro General: oriented to person, oriented to place, oriented to time, patient oriented x3, moves all extremities, no focal motor deficits and CN's II-XI intact bilaterally Cranial nerves: Yes Equal, round and reactive pupils present Cognition (Neuro): normal cognition Extrem General: Yes full ROM, Yes no pedal edema and Yes no calf tenderness Left upper extremity: wrist forearm distal Details: normal to inspection, tenderness Location: of the distal ulna and normal ROM; no ecchymosis and hand Details: normal capillary refill, neuromotor exam normal, neurosensory exam normal, tenderness Location: of the dorsal hand Location: over the 4th metacarpal and over the 5th metacarpal, vascular exam Details: radial pulse present, ulnar pulse present and normal capillary refill, normal ROM of fingers, swelling Location: of the dorsal hand Location: over the 4th digit and over the 5th metacarpal and ecchymosis Location: of the palm Location: on the ulnar aspect Psych Mental Status: mental status grossly normal Affect: normal affect Thought process: Normal thought process present Course Course Course Narrative: This is a Rapid Medical Examination (RME) performed by Onur Santiago PA-C in triage. Full HPI, ROS, assessment and treatment plan per primary provider in the Main ED. Hx: 25 yo M here for eval of L hand pain which began after horseplaying w/ his nephew yesterday, his hand slip and hit the wall. having pain/bruising/swelling to ulnar aspect hand/ 4th/th digits. Plan: xrs Procedures Orthopedic Splinting/Casting Injury #1: Side: left Upper Extremity Injury Location: hand Upper Extremity Immobilizer: ulnar gutter Medical Decision Making Medical Decision Making [facility] Narrative: Patient is a 25-year-old left-hand dominant male presenting to the emergency department with complaint of left hand and wrist pain since yesterday. On exam patient is awake, A+Ox3, VS WNL, afebrile, normal neurological exam without focal deficits, physical exam findings as above. Given reported symptoms and physical exam findings, initial differential includes but is not limited to left hand or wrist contusion versus strain versus sprain versus fracture. X-rays left hand and wrist notable for Comminuted fracture of neck of 5th metacarpal. My interpretation is in agreement with the radiologist's interpretation. Case discussed with franca Wilcox who recommend splint and outpatient follow up. Patient is splinted as per procedure note. Advised elevation, rest, ice, Tylenol and ibuprofen. Return precautions discussed. Patient verbalized understanding of and agreement with plan. Differential Diagnosis Differential Diagnoses: The differential diagnosis associated with the presentation includes as per mdm Admission/Observation Consideration of admission/observation: Escalation of care including admission/observation considered Patient would have been admitted to the hospital and transferred to appropriate facility had their clinical presentation warranted hospital admission. Consult Healthcare Provider Management of the patient was discussed with: Regulatory Submissions Specialist (KIRSTIE Wilcox) Independent Interpretation I performed an independent interpretation of an: Plain X-Ray Interpretation: X-rays of left wrist and hand notable for comminuted fracture of 5th metacarpal neck Radiology Impression Discussion of test interpretation with radiology: I have reviewed the rad iologist's reading. Radiologist Impression: 3 view left hand Comparison: None provided Findings: Comminuted fracture centered in the 5th metacarpal neck is associated with angulation, apex dorsal. No intra-articular extension. No dislocation. No significant arthritic change. No radiopaque foreign body. IMPRESSION: 1. Soft tissue swelling in the 5th digit. 2. Comminuted fracture centered in the 5th metacarpal neck is associated with angulation, apex dorsal. 3 view left wrist Comparison: None provided Findings: No fractures or dislocations. No significant arthritic change or erosions. No radiopaque foreign body. IMPRESSION: 1. No acute fracture or dislocation. 2. Distal 5th metacarpal fracture is described in better detail on concomitant left hand radiographs. External Record Review External record reviewed: Inpatient record, Office record and Outpatient record Discharge Plan Discharge Clinical Impression: Closed fracture of 5th metacarpal Qualifiers: Encounter type: initial encounter Metacarpal location: neck Fracture alignment: displaced Laterality: left Qualified Code(s): S62.337A - Displaced fracture of neck of fifth metacarpal bone, left hand, initial encounter for closed fracture Patient Disposition: Home, Self-Care Instructions: Hand Fracture (DC), Splint Care (ED), P.R.I.C.E. Treatment (ED) Additional Instructions: You have been evaluated in the emergency department today for left hand pain. Your evaluation showed a fracture of your 5th metacarpal which is a bone in your hand. We have placed your hand in a splint today, avoid getting the splint wet. Please rest, ice, and elevate your hand to help it heal. Use Tylenol or ibup rofen per package directions every 6 hours as needed for pain. If necessary, you can alternate these medications and take one medication every 3 hours. For instance, at noon take ibuprofen, then at 3:00 p.m. take Tylenol, then at 6:00 p.m. take ibuprofen. Please follow-up with the orthopedic surgeon within 1 week. Return to the emergency department if you experience worsening pain, numbness, tingling, change of color in your fingers, or any other concerning symptoms. Prescriptions: No Action ibuprofen 600 mg tablet 600 mg PO Q8H PRN (Reason: pain) Qty: 20 0RF ibuprofen 600 mg tablet 600 mg PO Q6H PRN (Reason: pain) Qty: 30 0RF ibuprofen 800 mg tablet 800 mg PO Q6H PRN (Reason: pain or fever) Qty: 30 0RF ondansetron 4 mg tablet,disintegrating 4 mg PO Q6-8H PRN (Reason: nausea and vomiting) Qty: 14 0RF acetaminophen [Tylenol Extra Strength] 500 mg tablet 500 mg PO Q6H PRN (Reason: fever or pain) Qty: 14 0RF lidocaine [Lidoderm] 5 % adhesive patch,medicated 1 patch topical DAILY MDD remove after 12 hours PRN (Reason: pain) Qty: 30 0RF Rx Instructions: leave on most painful area for up to 12 hrs naproxen 500 mg tablet 500 mg PO BID PRN (Reason: pain) 10 Days Qty: 20 0RF cyclobenzaprine 5 mg tablet 5 mg PO Q8H PRN (Reason: pain (scale score 7-10)) 5 Days Qty: 14 0RF ondansetron 4 mg tablet,disintegrating 4 mg PO Q6H PRN (Reason: nausea and vomiting) Qty: 15 0RF morphine 15 mg tablet 15 mg PO Q4-6H PRN (Reason: pain) Qty: 14 0RF Rx Instructions: Patient may request partial fill; Partial Fill upon patient request. amoxicillin 500 mg capsule 1,000 mg PO TID 5 Days Qty: 30 0RF ondansetron 4 mg tablet,disintegrating 4 mg PO Q8H PRN (Reason: nausea and vomiting) Qty: 12 0RF Referrals: [facility] [Provider Group] - 1 week Clinical Impression: Closed fracture of 5th metacarpal Print Language: Romansh
--- OUTSIDE RECORDS SUMMARY | 2025-08-17 12:02 | XMS_ITS | Encounter Summary ---
Author Organization [facility] Address [address] [place] [phone] Phone Care Team Providers Care Lead Technical Architect Name Role Phone Quoc Moreno MD Primary Care Provider Alice decker Encounter Details Date Type Department Care Team (Late st Contact Info) Description 12/29/2010 Documentation EM Family Medicine [address] [place], [place] [phone] Family Medicine, Physician [address] [place] [address] Social History Tobacco Use Types Packs/Day Years Used Date Smoking Tobacco: Never Assessed Sex and Gender Information Value Date Recorded Sex Assigned at Not on file Legal Sex Male 4:54 PM EDT Gender Identity Not on file Sexual Orientation Not on file documented as of this encounter Plan of Treatment Not on file documented as of this encounter Visit Diagnoses Not on filedocumented in this encounter Care Teams Lead Technical Architect Relationship Specialty Start Date End Date Quoc Moreno MD PCP - General 04/22/17 12/19/22 documented as of this encounter
--- OUTSIDE RECORDS SUMMARY | 2025-08-17 12:02 | XMS_ITS | Clinical Summary ---
Author Organization [facility] Address [address] [place] [address] Phone Care Team Providers Care Form Setter/Driver Name Role Phone Unavailable Primary Care Provider Unavailabl e Immunizations Immunization Administration Dates Next Due DTaP 5 01/14/2005, 2,2000,07/15,2000 H1N1 08/05/2009 Hep A, ped/adol 07/24/2014 Hep B, ped/adol 2000,2000,2000 Hib (PRP-T) 08/02/2001, 0,2000,05/12 IPV 01/14/2005, 2,2000,05/12 Influenza Split 08/17/2012,07/30/2011,05/26/2010 Influenza, injectable, quadrivalent 07/24/2014 Influenza, injectable, quadr ivalent, preservative free 10/02/2013 Influenza, injectable, trivalent 06/17/2009,10/0 02/2008,06/20/2007 MMR 01/14/2005,2001 Meningococcal Conj (Menactra) MCV4P 07/30/2011 Pneumococcal Conjugate 08/02/2001,1999,2000,05/12 Tdap 07/30/2011 Varicella 07/30/2011,2001 Family History Relation Name Status Comments Father Alive Father: ADD/ADH D, Alive and well Maternal Grandmother Materna l grandmother: Hypertension, Elevated cholesterol Mother Alive Mother: Elevate d cholesterol Other 1 Close relative: Kidney stones Other 2 Family history of Cancer, lung, No family history of Thrombophilia, No family history of Sudden /MA under age 55, Family history of Seizure disorder, Family history of CVA (Stroke), No family history of Dental caries Paternal Grandmother Hector l grandmother: hep c Sister Alive Sister: Alive a nd well Social History Tobacco Use Types Packs/Day Years Used Date Smoking Tobacco: Never Comments:Never smoker Sex and Gender Information Value Date Recorded Sex Assigned at Not on file Legal Sex Male 4:54 PM EDT Gender Identity Not on file Sexual Orientation Not on file Last Filed Vital Signs Vital Sign Reading Time Taken Comments Blood Pressure 126/68 07/24/2014 12:00 AM EST Pulse - - Temperature 37 C (98.6 F) 04/11/2013 12:00 AM EDT Respiratory Rate - - Oxygen Saturation - - Inhaled Oxygen Concentration - - Weight 97.5 kg (215 lb) 07/24/2014 12:00 AM EST Height 174 cm (5' 8.5 ) 07/24/2014 12:00 AM EST Body Mass Index 32.22 07/24/2014 12:00 AM EST Plan of Treatment Health Maintenance Due Date Last Done Comments Hepatitis A Vaccines (2 of 2 - 2-dose series) 01/21/2015 07/24/2014 HPV Vaccines (1 - Male 3-dose series) 2015 DTaP,Tdap,and Td Vaccines (7 - Td or Tdap) 07/30/2021 07/30/2011, 01/14/2005, 09/29/2001, Additional history exists Influenza Vaccines (#1) 2025 07/24/20 14, 10/02/2013, 08/17/2012, Additional history exists COVID-19 Vaccine ( season) 2025 Hepatitis B Vaccines Completed 2000, 2000, 2000 HIB Vaccines Completed 08/02/2001, 08/13, 2000, Additional history exists Pneumococcal Vaccine Completed 08/02/2001, 2000, 2000, Additional history exists IPV Vaccines Completed 01/14/2005, 09/12, 2000, Additional history exists MMR Vaccines Completed 01/14/2005, 2001 Meningococcal Vaccine Aged Out 07/30/2011 No monik lisa eligible based on patient's age to complete this topic Varicella Vaccines Completed 07/30/2011, 2001 Men B Vaccine Aged Out No longer elig ible based on patient's age to complete this topic
--- OUTSIDE RECORDS SUMMARY | 2025-08-17 12:02 | XMS_ITS | Encounter Summary ---
Author Organization [facility] Address [address] [place] [phone] Phone Care Team Providers Care Sales Utility Representative Name Role Phone Quoc Moreno MD Primary Care Provider Alice decker Encounter Details Date Type Department Care Team (Late st Contact Info) Description 06/29/2013 Documentation EM Family Medicine [address] [place], [place] [phone] Family Medicine, Physician [address] [place] [address] Social History Tobacco Use Types Packs/Day Years [...] on filedocumented in this encounter Care Teams Sales Utility Representative Relationship Specialty Start Date End Date Quoc Moreno MD PCP - General 04/22/17 12/19/22 documented as of this encounter
--- OUTSIDE RECORDS SUMMARY | 2025-08-17 12:02 | XMS_ITS | Encounter Summary ---
Author Organization [facility] Address [address] [place] [phone] Phone Care Team Providers Care Director Supply Name Role Phone Quoc Moreno MD Primary Care Provider Alice decker Encounter Details Date Type Department Care Team (Late st Contact Info) Description 04/28/2017 Conversion Encounter [facility] - [address] [address] Social History Tobacco Use Types Packs/Day Years [...] on filedocumented in this encounter Care Teams Director Supply Relationship Specialty Start Date End Date Quoc Moreno MD PCP - General 04/22/17 12/19/22 documented as of this encounter
[2025-08-17 13:54] VITALS: BP 125/79; PULSE 100; RESP 18; TEMP 36.6; O2SAT 99
== END 2025-08-17 13:55 | disposition home or self-care (01) ==
PROVIDERS: Emergency Provider Emergency Medicine
DX: S62.337A Displaced fracture of neck of fifth metacarpal bone, left hand, initial encounter for closed fracture (principal); X50.9XXA Other and unspecified overexertion or strenuous movements or postures, initial encounter; Y93.9 Activity, unspecified; Y92.9 Unspecified place or not applicable; Y99.8 Other external cause status
CPT/HCPCS: 29125; 73110; 73130; 99282; 99284

== ENCOUNTER → 2025-08-17 11:38 | Outpatient (BNV) | payer OTHER, SELFPAY | PROVIDERS: Emergency Provider Emergency Medicine; Visit Provider Radiology Diagnostic Radiology | DX: S62.337A Displaced fracture of neck of fifth metacarpal bone, left hand, initial encounter for closed fracture (principal); S62.307A Unspecified fracture of fifth metacarpal bone, left hand, initial encounter for closed fracture; W22.01XA Walked into wall, initial encounter | CPT/HCPCS: 73110; 73130 ==

== ENCOUNTER 2025-08-23 08:10 | Outpatient (REF) | payer OTHER, SELFPAY ==
--- NOTE | ~2025-08-23 | XR_ITS ---
EXAMINATION: XR HAND, LEFT CLINICAL INFORMATION: M79.642 - Pain in left hand COMPARISON: August 17, 2025 TECHNIQUE: PA, lateral, and oblique views of the left hand. FINDINGS: Fractures with volar angulation at the fifth and fourth metacarpals. No gross callus formation. Phalanges are intact with normal alignment. Carpal bones are intact with normal alignment. No metallic or radiopaque foreign body. XR/XR hand LT min 3V IMPRESSION: No healing fractures with volar angulation at the distal fifth and fourth metacarpals, left hand. Electronically signed by: Tye Flores MD 08/23/2025 12:26 PM EST
== END 2025-08-23 08:11 | disposition home or self-care (01) ==
LOC: HO.HOSX 08:10
DX: S62.337A Displaced fracture of neck of fifth metacarpal bone, left hand, initial encounter for closed fracture (principal); S62.335A Displaced fracture of neck of fourth metacarpal bone, left hand, initial encounter for closed fracture; W22.8XXA Striking against or struck by other objects, initial encounter; Y93.89 Activity, other specified
CPT/HCPCS: 26600; 73130; 99202

== ENCOUNTER 2025-08-23 12:00 | Outpatient (AMB) | payer OTHER, SELFPAY ==
[2025-08-23 12:20] VITALS: BMI 33.2
--- NOTE | 2025-08-23 12:20 | A.OFFVIS_ITS ---
Vital Signs 08/23/25 12:20 Height 6 ft Weight 245 lb BMI 33.2 Intake Visit Reasons: ED f/u Closed fracture of 5th metacarpal Intake Note: Navi 25 yr old left-hand dominant male who is unemployed presents today for a ED follow up visit for his left hand and wrist pain since 08/16/25. States that he was playing around with his nephew who is autistic, when he slipped and put his hand out to break his fall but ended up punching the wall and fracturing his left small finger. States he was splintted and referred to orthopedics. Today patient states he has pain 5/10 on pain scale, bruising and swelling. He has been taking ibuprofen and Tylenol with mild pain relief Allergies No Known Allergies Allergy (Verified 08/23/25 12:24) HPI HPI ED f/u Closed fracture of 5th metacarpal: Details: Navi 25 yr old left-hand dominant male who is unemployed presents today for a ED follow up visit for his left hand and wrist pain since 08/16/25. States that he was playing around with his nephew who is autistic, when he slipped and put his hand out to break his fall but ended up punching the wall and fracturing his left small finger. States he was splintted and referred to orthopedics. Patient states that his pain is primarily in the area of the 5th metacarpal head. Patient states he is very apprehensive about any potential surgery, and would like to treat anything conservatively if possible. Today patient states he has pain 5/10 on pain scale, bruising and swelling. He has been taking ibuprofen and Tylenol with mild pain relief REPLACED BY [facility] Social History (Updated 08/23/25 @ 12:25 by JOE Carbone) Alcohol intake: never Substance Use Type: Marijuana Current occupational status: unemployed Current occupation: left hand Review of Systems Const All systems reviewed & are unremarkable except as noted in HPI and below Physical Exam Vital Signs: BMI result Body Mass Index 33.2 Extrem Other: Patient is alert, oriented, and in no acute distress. Neuro: Normal sensation of the tips of all digits of the left hand at this time Vascular: Cap refill brisk Pain: Tenderness to palpation about left 5th metacarpal head and neck Some tenderness to palpation about left 4th metacarpal neck No tenderness to palpation anywhere else in the left hand or wrist ROM: Patient is able to get close to making a closed fist and extend all digits of the left hand fully No rotational deformity of the left small finger noted Skin: No lacerations or abrasions. General: Mild ecchymosis and edema noted over the left 5th metacarpal head and neck No erythema or evidence of infection Psych: Appears grossly normal Affect normal Attitude cooperative Office Procedures Casting/Splints [id number] Splint Application Procedure code (CPT) selection complete Results Reviewed Results Reviewed: X-rays obtained in the office today and independently reviewed by me, Brenden Ambrocio PA-C, demonstrate minimally displaced left 5th metacarpal neck fracture as well as nondisplaced left 4th metacarpal neck fracture. Assessment & Plan Assessment & Plan (1) Displaced fracture of neck of left fifth metacarpal bone: Code(s): S62.337A - Displaced fracture of neck of fifth metacarpal bone, left hand, initial encounter for closed fracture Category: Medical (2) Fracture of fourth metacarpal bone of left hand: Code(s): S62.305A - Unspecified fracture of fourth metacarpal bone, left hand, initial encounter for closed fracture Category: Medical Plan 1. Left 5th metacarpal neck fracture 2. Left 4th metacarpal neck fracture Date of injury 08/17/2025 Patient is educated about this condition Patient is educated about the typical recovery course At this time, I feel that the patient can be treated conservatively at this time, however, I would like to see him back in a week for monitoring to make sure that he does not require any surgical intervention at that time Patient is placed into 3 finger ulnar gutter splint Patient is educated on proper splint care and precautions 2 lb weight limit in left hand Follow-up in 1 week with repeat x-rays for reassessment, anticipate cast place ment at that time, sooner with any acute concerns Orders: Orders XR hand LT min 3V Today M79.642 - Pain in left hand Medications: Discontinued morphine Patient may request partial fill; Partial Fill upon patient request. Discontinued Reason: Patient Completed Course 15 mg PO Q4-6H PRN 14 tabs 0RF pain amoxicillin Discontinued Reason: Patient Completed Course 1,000 mg (2 x 500 mg) PO TID 5 days 30 caps 0RF naproxen Discontinued Reason: Patient Completed Course 500 mg PO BID 10 days PRN 20 tabs 0RF pain Coding Level of Care Code New Pt Level 3 (38638) Diagnoses Displaced fracture of neck of left fifth metacarpal bone S62.337A Fracture of fourth metacarpal bone of left hand S62.305A CPT Codes Splint - CPT: [id number]-[id number] Splint Application ([id number])
--- OUTSIDE RECORDS SUMMARY | 2025-08-23 17:14 | XMS_ITS | Encounter Summary ---
Author Organization [facility] Address [address] [place] [phone] Phone Care Team Providers Care Engine Repairer Production Name Role Phone Quoc Moreno MD Primary Care Provider Alice decker Encounter Details Date Type Department Care Team (Late st Contact Info) Description 06/29/2013 Documentation EM Family Medicine [address] [place], [place] [phone] Family Medicine, Physician [address] [place] [address] Social History Tobacco Use Types Packs/Day Years [...] on filedocumented in this encounter Care Teams Engine Repairer Production Relationship Specialty Start Date End Date Quoc Moreno MD PCP - General 04/22/17 12/19/22 documented as of this encounter
--- OUTSIDE RECORDS SUMMARY | 2025-08-23 17:14 | XMS_ITS | Clinical Summary ---
Author Organization [facility] Address [address] [place] [address] Phone Care Team Providers Care Hydraulic Tester Name Role Phone Unavailable Primary Care Provider [...] of Thrombophilia, No family history of Sudden /NE under age 55, Family history of Seizure [...]
--- OUTSIDE RECORDS SUMMARY | 2025-08-23 17:14 | XMS_ITS | Encounter Summary ---
Author Organization [facility] Address [address] [place] [phone] Phone Care Team Providers Care Housekeeping Cleaner Name Role Phone Quoc Moreno MD Primary Care Provider Alice decker Encounter Details Date Type Department Care Team (Late st Contact Info) Description 04/28/2017 Conversion Encounter [facility] - [address] [id number] Social History Tobacco Use Types Packs/Day Years [...] on filedocumented in this encounter Care Teams Housekeeping Cleaner Relationship Specialty Start Date End Date Quoc Moreno MD PCP - General 04/22/17 12/19/22 documented as of this encounter
--- OUTSIDE RECORDS SUMMARY | 2025-08-23 17:14 | XMS_ITS | Encounter Summary ---
Author Organization [facility] Address [address] [place] [phone] Phone Care Team Providers Care Denial Management Representative Name Role Phone Quoc Moreno MD Primary Care Provider Alice decker Encounter Details Date Type Department Care Team (Late st Contact Info) Description 12/29/2010 Documentation EM Family Medicine [address] [place], [place] [phone] Family Medicine, Physician [address] [place] [address] Social History Tobacco Use Types Packs/Day Years [...] on filedocumented in this encounter Care Teams Denial Management Representative Relationship Specialty Start Date End Date Quoc Moreno MD PCP - General 04/22/17 12/19/22 documented as of this encounter
== END 2025-08-23 13:14 | disposition home or self-care (01) ==
LOC: HO.HOS 12:01
DX: S62.337A Displaced fracture of neck of fifth metacarpal bone, left hand, initial encounter for closed fracture (principal); S62.305A Unspecified fracture of fourth metacarpal bone, left hand, initial encounter for closed fracture
CPT/HCPCS: 26600; 99204

== ENCOUNTER → 2025-08-23 12:07 | Outpatient (BNV) | payer OTHER, SELFPAY | PROVIDERS: Visit Provider Radiology Diagnostic Radiology | DX: M79.642 Pain in left hand (principal) | CPT/HCPCS: 73130 ==

== ENCOUNTER 2025-09-04 07:46 | Outpatient (REF) | payer OTHER, SELFPAY ==
--- NOTE | ~2025-09-04 | XR_ITS ---
EXAMINATION: XR HAND 3 OR MORE VIEWS LEFT HISTORY: M79.642 - Pain in left hand COMPARISON: Comparison is made with the prior examination dated 08/23/2025. FINDINGS: Four views of the left hand are submitted. Osseous mineralization is normal. Again seen are fractures of the 4th and 5th metacarpal necks. The fracture lines remain visible. No significant callus formation is noted. The joint spaces are preserved. The soft tissues are unremarkable. XR/XR hand LT min 3V IMPRESSION: Fractures of the 4th and 5th metacarpal necks without significant change. Electronically signed by: Robbi Clark MD 09/04/2025 01:27 PM [facility]
--- OUTSIDE RECORDS SUMMARY | 2025-09-04 07:48 | XMS_ITS | Encounter Summary ---
Author Organization [facility] Address [address] [place] [phone] Phone Care Team Providers Care Longwall Headgate Operator Name Role Phone Quoc Moreno MD Primary Care Provider Alice decker Encounter Details Date Type Department Care Team (Late st Contact Info) Description 04/28/2017 Conversion Encounter [facility] - [address] [address] Social History Tobacco Use Types Packs/Day Years [...] on filedocumented in this encounter Care Teams Longwall Headgate Operator Relationship Specialty Start Date End Date Quoc Moreno MD PCP - General 04/22/17 12/19/22 documented as of this encounter
--- OUTSIDE RECORDS SUMMARY | 2025-09-04 07:48 | XMS_ITS | Encounter Summary ---
Author Organization [facility] Address [address] [place] [phone] Phone Care Team Providers Care Anesthesiology Physician Name Role Phone Quoc Moreno MD Primary Care Provider Alice decker Encounter Details Date Type Department Care Team (Late st Contact Info) Description 06/29/2013 Documentation EM Family Medicine [address] [place], [place] [phone] Family Medicine, Physician [address] [place] [address] Social History Tobacco Use Types Packs/Day Years [...] on filedocumented in this encounter Care Teams Anesthesiology Physician Relationship Specialty Start Date End Date Quoc Moreno MD PCP - General 04/22/17 12/19/22 documented as of this encounter
--- OUTSIDE RECORDS SUMMARY | 2025-09-04 07:48 | XMS_ITS | Encounter Summary ---
Author Organization [facility] Address [address] [place] [address] Phone Care Team Providers Care Fugitive Detective Name Role Phone Quoc Moreno MD Primary Care Provider Alice decker Encounter Details Date Type Department Care Team (Late st Contact Info) Description 12/29/2010 Documentation EM Family Medicine [address] [place], [place] [phone] Family Medicine, Physician [address] [place] [address] Social History Tobacco Use Types Packs/Day Years [...] on filedocumented in this encounter Care Teams Fugitive Detective Relationship Specialty Start Date End Date Quoc Moreno MD PCP - General 04/22/17 12/19/22 documented as of this encounter
--- OUTSIDE RECORDS SUMMARY | 2025-09-04 07:48 | XMS_ITS | Clinical Summary ---
Author Organization [facility] Address [address] [place] [address] Phone Care Team Providers Care Reeling Machine Operator Name Role Phone Unavailable Primary Care Provider [...] of Thrombophilia, No family history of Sudden /[place] under age 55, Family history of Seizure [...]
== END 2025-09-04 07:47 | disposition home or self-care (01) ==
LOC: HO.HOSX 07:46
DX: S62.337D Displaced fracture of neck of fifth metacarpal bone, left hand, subsequent encounter for fracture with routine healing (principal); S62.305D Unspecified fracture of fourth metacarpal bone, left hand, subsequent encounter for fracture with routine healing; X58.XXXD Exposure to other specified factors, subsequent encounter
CPT/HCPCS: 29085; 73130; 99212

== ENCOUNTER 2025-09-04 13:11 | Outpatient (AMB) | payer OTHER, SELFPAY ==
[2025-09-04 13:18] VITALS: BMI 33.2
--- NOTE | 2025-09-04 13:18 | MHC.OFFVIS ---
Vital Signs 09/04/25 13:18 Height 6 ft Weight 245 lb BMI 33.2 Intake Visit Reasons: OV:Left 4th & 5th metacarpal neck fx, DOI 08/17/25 Intake Note: Navi is a 25 year old left-hand dominant male who presents today for a follow up visit status post Left 4th & 5th Metacarpal Neck Fracture, DOI: 08/17/25. At his last vsit with Dr. Mata, he was placed in a 3 finger ulnar gutter splint with a 2 lb weight limit. Patient reports he is doing well. He denies any pain, numbness, or tingling. Allergies No Known Allergies Allergy (Verified 09/04/25 13:21) HPI HPI OV:Left 4th & 5th metacarpal neck fx, DOI 08/17/25: Details: Navi is a 25 year old left-hand dominant male who presents today for a follow up visit status post Left 4th & 5th Metacarpal Neck Fracture, DOI: 08/17/25. At his last vsit with Dr. Mata, he was placed in a 3 finger ulnar gutter splint with a 2 lb weight limit. Patient reports he is doing well. He denies any pain, numbness, or tingling. Patient states that he does occasionally get a ?cramping pain? in the area of the fractures, but states that he does not have any consistent pain. [facility] Social History (Updated 08/23/25 @ 12:25 by JOE Carbone) Alcohol intake: never Substance Use Type: Marijuana Current occupational status: unemployed Current occupation: left hand Physical Exam Vital Signs: BMI result Body Mass Index 33.2 Extrem Other: Patient is alert, oriented, and in no acute distress. Neuro: Normal sensation of the tips of all digits of the left hand at this time Vascular: Cap refill brisk Pain: No tenderness to palpation about fracture sites on 4th and 5th metacarpals No tenderness to palpation anywhere else in the left hand or wrist ROM: Patient is able to get close to making a closed fist and extend all digits of the left hand fully No rotational deformity of the left small finger noted Skin: No lacerations or abrasions. General: No further ecchymosis or edema noted No erythema or evidence of infection Psych: Appears grossly normal Affect normal Attitude cooperative Office Procedures AMB Fracture Care Fracture Billing Code: Fracture Billing Code Results Reviewed Results Reviewed: X-rays obtained in the office today and independently reviewed by me, Brenden Ambrocio PA-C, demonstrate minimally displaced left 5th metacarpal neck fracture as well as nondisplaced left 4th metacarpal neck fracture. Assessment & Plan Assessment & Plan (1) Displaced fracture of neck of left fifth metacarpal bone: Code(s): S62.337A - Displaced fracture of neck of fifth metacarpal bone, left hand, initial encounter for closed fracture Category: Medical (2) Fracture of fourth metacarpal bone of left hand: Code(s): S62.305A - Unspecified fracture of fourth metacarpal bone, left hand, initial encounter for closed fracture Category: Medical Plan 1. Left 5th metacarpal neck fracture 2. Left 4th metacarpal neck fracture Date of injury 08/17/2025 Patient is educated about this condition Patient is educated about the typical recovery course We will proceed with conservative management at this time, as fractures have not displaced further and the patient is feeling very good Patient is placed into 2 finger ulnar gutter cast Patient is educated on proper cast care and precautions 2 lb weight limit in left hand Follow-up in 2 weeks with repeat x-rays for reassessment, anticipate cast removal at that time, sooner with any acute concerns Orders: Orders XR hand LT min 3V Today M79.642 - Pain in left hand Medications: Discontinued ibuprofen Discontinued Reason: Duplicate 600 mg PO Q8H PRN 20 tabs 0RF pain ondansetron Discontinued Reason: Duplicate 4 mg PO Q6-8H PRN 14 tabs 0RF nausea and vomiting ibuprofen Discontinued Reason: Duplicate 600 mg PO Q6H PRN 30 tabs 0RF pain ibuprofen Discontinued Reason: Duplicate 800 mg PO Q6H PRN 30 tabs 0RF pain or fever ondansetron Discontinued Reason: Duplicate 4 mg PO Q6H PRN 15 tabs 0RF nausea and vomiting Coding Level of Care Code Est Pt Level 3 (74054) Diagnoses Displaced fracture of neck of left fifth metacarpal bone S62.337A Fracture of fourth metacarpal bone of left hand S62.305A CPT Codes Fracture Care - Fracture Billing Code: Fracture Billing Code ([id number])
== END 2025-09-04 14:25 | disposition home or self-care (01) ==
LOC: HO.HOS 13:12
DX: S62.337A Displaced fracture of neck of fifth metacarpal bone, left hand, initial encounter for closed fracture (principal); S62.305A Unspecified fracture of fourth metacarpal bone, left hand, initial encounter for closed fracture
CPT/HCPCS: 29085; 99024

== ENCOUNTER → 2025-09-04 13:14 | Outpatient (BNV) | payer OTHER, SELFPAY | PROVIDERS: Visit Provider Radiology Diagnostic Radiology | DX: S62.335D Displaced fracture of neck of fourth metacarpal bone, left hand, subsequent encounter for fracture with routine healing (principal); S62.337D Displaced fracture of neck of fifth metacarpal bone, left hand, subsequent encounter for fracture with routine healing | CPT/HCPCS: 73130 ==